=== PATIENT | female | born 1990 | race Caucasian/White ===

== ENCOUNTER 2018-04-24 19:12 | Observation (INO) | payer OTHER ==
--- NOTE | 2018-04-24 19:31 | PDOC ---
Rapid Medical Evaluation Time Seen by Provider: 04/24/18 19:29 Medical Evaluation: Allergies Allergy/AdvReac Type Severity Reaction Status Date / Time No Known Allergies Allergy Verified 07/01/15 22:51 04/24/18 19:29 I performed a brief in-person evaluation of this patient. Chief complaint: Tingling in left arm and leg x 3 days Pertinent physical exam findings: Normal movement and strength. Subjective decreased sensation left arm and leg. No other focal deficits. I have ordered the following: Basic labs Patient will proceed to the ED for further evaluation. Discharge Disposition - Diagnosis Numbness - Referrals - Patient Instructions - Post Discharge Activity
[2018-04-24 19:33] VITALS: BMI 35.0
[2018-04-24 20:12] LABS: ALK PHOS 87 U/L (45-117); ANION GAP 6 MMOL/L (8-16); BILIRUBIN,TOTAL 0.2 mg/dL (0.2-1); BLOOD UREA NITROGEN 11 mg/dL (7-18); CALCIUM 9.2 mg/dL (8.5-10.1); CHLORIDE 106 mmol/L (98-107); CO2 27 mmol/L (21-32); CREATININE 0.9 mg/dL (0.55-1.3); GLUCOSE,RANDOM 90 mg/dL (74-106); MAGNESIUM 2.4 mg/dL (1.8-2.4); SGOT/AST 22 U/L (15-37); SGPT/ALT 52 U/L (13-61); SODIUM 139 mmol/L (136-145); TOT PROT 7.7 g/dl (6.4-8.2)
[2018-04-24 20:26] LABS: BASO % 0.5 % (0-2.0); EOS % 0.7 % (0-4.5); HEMATOCRIT 34.7 % (32.4-45.2); HEMOGLOBIN 11.3 GM/dL (10.7-15.3); LYMPH % 34.4 % (8-40); MCH 24.6 pg (25.7-33.7); MCHC 32.7 g/dl (32.0-36.0); MEAN CELL VOLUME 75.1 fl (80-96); MONO % 8.1 % (3.8-10.2); NEUT % 56.3 % (42.8-82.8); PLATELET COUNT 588 K/MM3 (134-434); RBC 4.62 M/mm3 (3.60-5.2); RDW 20.9 % (11.6-15.6); WHITE BLOOD COUNT 7.9 K/mm3 (4.0-10.0)
[2018-04-24 20:36] LABS: INR 0.94 (0.83-1.09); PROTHROMBIN TIME (PATIENT) 11.1 SEC (9.7-13.0)
--- NOTE | 2018-04-24 20:49 | PDOC ---
History of Present Illness - General Chief Complaint: CVA/TIA Stated Complaint: TINGLING IN LEFT ARM AND KNEE Time Seen by Provider: 04/24/18 19:29 - History of Present Illness Initial Comments: 04/24/18 20:50 The patient is a 27 year old female with a PMH of Thrombocytosis, Anemia who presents to our ED with a 3 day h/o L sided tingling and numbness. Tingling is constant and she sometimes notice that her LUE and LLE are numb. Also c/o L sided cheek numbness without tingling. Denies any changes in gait, vision, speech, bowel/bladder control or consciousness. H/o symptoms three weeks previous at which time patient was evaluated at urgent care at which time she was noted to be anemic and have eleveted platelets (700's). Symptoms persisted for 1 week. Patient was referred to a neurologist without any intervention as she was asymptomatic. The patient denies chest pain, shortness of breath, abdominal pain, nausea/ vomiting, diarrhea/constipation,dysuria/hematuria. NKDA Surgical: none reported Social: denies toxic habits. As per EMR, patient last evaluated in our ED in 2015 for vaginal bleeding. Past History - Past Medical History Allergies/Adverse Reactions: Allergies Allergy/AdvReac Type Severity Reaction Status Date / Time No Known Allergies Allergy Verified 04/25/18 02:57 Home Medications: Ambulatory Orders NK [No Known Home Medication] 07/01/15 Asthma: No Cancer: No Cardiac Disorders: No CVA: No COPD: No CHF: No Diabetes: No HTN: No Seizures: No Thyroid Disease: No - Surgical History Cardiac Surgery: No Cholecystectomy: No GI Surgery: No Lung Surgery: No - Immunization History Immunization Up to Date: Yes - Suicide/Smoking/Psychosocial Hx Smoking History: Never smoked Have you smoked in the past 12 months: No Information on smoking cessation initiated: No Hx Alcohol Use: No Drug/Substance Use Hx: No Substance Use Type: None Hx Substance Use Treatment: No Review of Systems - Review of Systems Constitutional: No: Chills, Fever HEENTM: No: Blurred Vision, Throat Pain Respiratory: No: Cough, Shortness of Breath Cardiac (ROS): No: Chest Pain, Lightheadedness, Palpitations, Syncope ABD/GI: No: Constipated, Diarrhea, Nausea, Vomiting : No: Burning, Dysuria Neurological: Yes: Numbness, Tingling. No: Unsteady Gait, Ataxia, Dizziness *Physical Exam - Vital Signs Last Vital Signs Temp Pulse Resp BP Pulse Ox 98.7 F 69 20 146/76 100 04/24/18 19:31 04/24/18 19:31 04/24/18 19:31 04/24/18 19:31 04/24/18 19:31 - Physical Exam General Appearance: Yes: Nourished, Appropriately Dressed HEENT: positive: Normal Voice, Hearing Decreased Neck: positive: Trachea midline, Supple Respiratory/Chest: positive: Lungs Clear, Normal Breath Sounds Cardiovascular: positive: S1, S2. 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 negative: Facial Droop, Confused, Disoriented Moderate Sedation - Procedure Monitoring Vital Signs: Procedure Monitoring Vital Signs Temperature 98.7 F 04/24/18 19:31 Pulse Rate 69 04/24/18 19:31 Respiratory Rate 20 04/24/18 19:31 Blood Pressure 146/76 04/24/18 19:31 O2 Sat by Pulse Oximetry (%) 100 04/24/18 19:31 ED Treatment Course - LABORATORY CBC & Chemistry Diagram: 04/25/18 06:40 04/25/18 06:40 - ADDITIONAL ORDERS Additional order review: Laboratory Results 04/24/18 04/24/18 04/24/18 19:37 19:37 19:32 PT with INR 11.10 INR 0.94 Sodium 139 Potassium 4.0 Chloride 106 Carbon Dioxide 27 Anion Gap 6 L BUN 11 Creatinine 0.9 Creat Clearance w eGFR > 60 Random Glucose 90 Calcium 9.2 Magnesium 2.4 Total Bilirubin 0.2 AST 22 ALT 52 Alkaline Phosphatase 87 Total Protein 7.7 Albumin 4.0 Serum , Qual Negative 04/24/18 19:37 RBC 4.62 MCV 75.1 L MCHC 32.7 RDW 20.9 H MPV 8.0 Neutrophils % 56.3 Lymphocytes % 34.4 Monocytes % 8.1 Eosinophils % 0.7 Basophils % 0.5 Medical Decision Making - Medical Decision Making 04/24/18 20:48 27 year old female presents with two episodes of L sided numbness and tingling. VS unremarkable. Decreased sensation in LUE/JESSE. No other neurologic deficit noted. Frontal diagnosis: r/o CVA/TIA, electrolyte derangement, migraine disorder, MS or other AI disease. Will obtain Head CT, Headache cocktail. Reassess. Head CT negative for acute ischemia/bleed VSS Patient reassessed @ bedside - head improved, however continues to c/o numbness and tingling. At this time patient requires further neurological evaluation including MRI to r /o MS. Will admit to medicine. Patient counseled on plan of care. Amenable to admission. Case d/w Dr. Christopher Fisher (Resident) will admit to observation. Neuro consult pending. Clinical Impression: ? MS *DC/Admit/Observation/Transfer Diagnosis at time of Disposition: Numbness - Discharge Dispostion Disposition: HOME Condition at time of disposition: Stable - Referrals - Patient Instructions - Post Discharge Activity
[2018-04-24 21:06] LABS: ANISOCYTOSIS 2+
[2018-04-24 21:07] LABS: PLATELET ESTIMATE INCREASED
[2018-04-24] MEDS ORDERED: ACETAMINOPHEN 1000 MG/100 ML VIAL (NON FORMULARY) IVPB ONE (21:15)
[2018-04-24] MEDS ORDERED: METOCLOPRAMIDE HCL INJECTION 10 MG/2 ML VIAL IVPUSH ONE (21:15)
[2018-04-24] MEDS ORDERED: ACETAMINOPHEN INJECTION 100 ML IVPB ONE (21:22)
[2018-04-24] MEDS ORDERED: METOCLOPRAMIDE HCL INJECTION 10 MG/2 ML VIAL ONE (21:22)
--- NOTE | 2018-04-24 21:24 | PDOC ---
Attending Attestation - [facility] HPI: The patient is a 27 year old female, with no significant PMH, who presents to the emergency department today complaining of tingling in the left upper and lower extremity for 3 days. Patient notes she feels tingling from the left shoulder to wrist, and from the left knee to the left ankle. She also notes associated decreased sensation. Patient reports that her gait, vision, and speech have been unaffected by this sensation. She also complains of an intermittent left-sided headache and decreased sensation on the left cheek. Patient reports a similar history 3 weeks ago, but only tingling from the left knee to the left ankle. Patient notes she went to Urgent Care at that time, and all test were normal except her platelets were elevated (in the 700s). She states she followed up with a neurologist, but was asymptomatic so was sent home. Patient notes her last episode resolved after a week. She denies any family history of these symptoms, but does note her mom has HTN and migraines. The patient denies chest pain, shortness of breath, and dizziness. Denies fever, chills, nausea, vomit, diarrhea and constipation. Denies dysuria, frequency, urgency and hematuria. Allergies: NKA Past surgical history: None reported Social history: No reported 04/24/18 21:34 - Physicial Exam PE: GENERAL: Awake, alert, and fully oriented, in no acute distress HEAD: No signs of trauma EYES: PERRLA, EOMI, sclera anicteric, conjunctiva clear ENT: Auricles normal inspection, hearing grossly normal, nares patent, oropharynx clear without exudates. Moist mucosa NECK: Normal ROM, supple, no lymphadenopathy, JVD, or masses LUNGS: Breath sounds equal, clear to auscultation bilaterally. No wheezes, and no crackles HEART: Regular rate and rhythm, normal S1 and S2, no murmurs, rubs or gallops ABDOMEN: Soft, nontender, normoactive bowel sounds. No guarding, no rebound. No masses EXTREMITIES: Normal range of motion, no edema. No clubbing or cyanosis. No cords, erythema, or tenderness NEUROLOGICAL: +Decreased sensation on the left maxillary. +Decreased sensation of the left arm and left leg. No pronator drift, dysmetria, or dysarthria. 5/5 strength of the upper and lower extremities. Cranial nerves II through XII grossly intact. Normal speech, normal gait. SKIN: Warm, Dry, normal turgor, no rashes or lesions noted. 04/24/18 21:34 - Medical Decision Making EXAM: CT head without contrast: IMPRESSION: Normal head. Reported by: Matthew Bruce MD 04/25/2018 00:09 Documentation prepared by SLY Leija, acting as medical imaging tech for Ramon Hendrix MD. 04/25/18 01:37 <Irlanda Vazquez - Last Filed: 04/25/18 01:37> - Resident Resident Name: Meredith Duggan - ED Attending Attestation I have performed the following: I have examined & evaluated the patient, The case was reviewed & discussed with the resident, I agree w/resident's findings & plan, Exceptions are as noted - Medical Decision Making 04/24/18 21:23 A portion of this note was documented by scribe services under my direction. I have reviewed the details of the note, within reason, and agree with the documentation with the following case summary and management plan written by me. Patient treated in the ED. Nursing notes are reviewed and incorporated into the medical decision-making. Vital signs reviewed. Peripheral IV access obtained by the nurse, laboratory studies are drawn and sent, reviewed and interpreted by myself. Vital Signs Temp Pulse Resp BP Pulse Ox 98.7 F 69 20 146/76 100 04/24/18 19:31 04/24/18 19:31 04/24/18 19:31 04/24/18 19:31 04/24/18 19:31 27-year-old female with past medical history other monocytosis, anemia presents with left-sided tingling and numbness since yesterday. The patient reported some her symptoms but only with her left lower extremity by 3 weeks ago that lasted for approximate 1 week. It resolved on its own. However, the patient did follow within neurologist who stated no intervention needed at that time. Yesterday, she noted this decreased sensation that persisted. She reported intermittent right-sided headache as well. Mother has a history of migraines the patient denies any prior history. Patient with persistent tingling in the left side. We'll rule out stroke, the patient has no risk factors. Differential some includes complex migraine, multiple sclerosis. We'll obtain a head CT and labs. We'll trial migraine medications. If the migraine medications resolved the symptoms, and the head CT is negative, I feel comfortable having the patient discharged neuro follow-up. However, patient is persistent left sided numbness, we'll admit the patient for an MRI of the brain. 04/25/18 01:[address] with no acute findings. But still has numbness despite medications. Will admit for MRI and neuro consult. <Ramon Hendrix - Last Filed: 04/25/18 02:05> NIH Stroke Scale - Last Known Well Date/Time & Onset Date Last Known Well: 04/24/18 - Initial Evaluation Level of consciousness: Alert Ask patient the month and their age: Answers both correctly Ask patient to open & close eyes; make fist and let go: Obeys both correctly Best gaze (horizontal eye movement): Normal Visual field testing: No visual field loss Facial paresis (Show teeth/raise eyebrows/close eyes tight): Normal symmetrical movement Motor Function: Left Arm: Normal Motor Function: Right Arm: Normal (extends arm 90 (or 45) degrees for 10 seconds without drift Motor Function: Left Leg: Normal (extends leg 30 degrees for 5 seconds without drift) Motor Function: Right Leg: Normal (extends leg 30 degrees for 5 seconds without drift) Limb Ataxia: No ataxia Sensory(Use pinprick test arms,legs,trunk,face/side to side): Mild to moderate decrease in sensation Best language (Describe picture, name items, read sentences): No Aphasia Dysarthria (read several words): Normal articulation Extinction and Inattention: No abnormality - Total Score NIH Stroke Scale Score: 1 <Ramon Hendrix - Last Filed: 04/25/18 02:05>
--- NOTE | 2018-04-25 02:20 | PN ---
Teaching Attending Note Name of Resident: Clement Mckenzie ATTENDING PHYSICIAN STATEMENT I saw and evaluated the patient. I reviewed the resident's note and discussed the case with the resident. I agree with the resident's findings and plan as documented. SUBJECTIVE: Patient is a 27 year old woman with PMH thrombocytosis and metromenorrhagia who presents to the ER complaining of tingling in the left upper and lower extremity for 3 days. Patient notes she feels tingling from the left shoulder to wrist, and from the left knee to the left ankle. She also notes associated decreased sensation. Patient reports that her gait, vision, and speech have been unaffected by this sensation. She also complains of an intermittent left- sided headache and decreased sensation on the left cheek. Patient reports a similar history 3 weeks ago, but only tingling from the left knee to the left ankle. Patient notes she went to Urgent Care at that time, and all tests were normal except her platelets were elevated (in the 700s). She states she followed up with a neurologist, but was asymptomatic so was sent home. Patient notes her last episode resolved after a week. She denies any family history of these symptoms, but does note her mom has HTN and migraines. LMP is Apr 25, 2018. The patient denies chest pain, shortness of breath, and dizziness. Denies fever, chills, nausea, vomit, diarrhea and constipation. Denies dysuria, frequency, urgency and hematuria. OBJECTIVE: Alert Vital Signs Period Temp Pulse Resp BP Sys/Ryder Pulse Ox Last 24 Hr 98.7 F 69 20 146/76 100 HEENT: No Jaundice, eye redness or discharge, PERRLA, EOMI. Normocephalic, atraumatic. External ears are normal and hearing is grossly intact. No nasal discharge. Neck: Supple, nontender. No palpable adenopathy or thyromegaly. No JVD Chest: Good effort. Clear to auscultation and percussion. Heart: Regular. No S3, rub or murmur Abdomen: Not distended, soft, nontender and no HSM. No rebound or guarding. Normoactive bowel sounds. Ext: Peripheral pulses intact. No leg edema. Skin: Warm and dry. No petechiae, rash or ecchymosis. Neuro: Alert. Oriented x3. CN 2-12 grossly intact. Sensation grossly intact in all four extremities and DTR are symmetric. Home Medications Medication Instructions Recorded NK [No Known Home Medication] 07/01/15 Abnormal Lab Results 04/24/18 04/24/18 19:37 19:37 MCV 75.1 L MCH 24.6 L D RDW 20.9 H Plt Count 588 H D Anion Gap 6 L ASSESSMENT AND PLAN: 1. Rule out Multiple Sclerosis ? - Clinical features highly suggestive of multiple sclerosis. Recent emergence of thrombocytosis in the patient is additional evidence in support of a diagnosis of MS. Studies have observed platelet abnormalities and a possible role of platelet dysfunction in MS. If brain or spinal cord MRI demonstrate any plaques, then will do a lumbar puncture to confirm multiple sclerosis. If brain MRI is negative, then will get C-spine MRI to rule out cervical radiculopathy. Consult Neurology. 2. Obesity - Will provide patient all the necessary assistance, counseling and positive reinforcement to facilitate weight loss. Consult inspector floor. 3. DVT prophylaxis - Lovenox 40 mg SQ q 24 hours. 4. Advance directives - Full code
--- NOTE | 2018-04-25 03:12 | HP ---
CHIEF COMPLAINT: Left arm, Leg numbness PCP: 2 [facility] HISTORY OF PRESENT ILLNESS: Pt is a 27 y/o lady with no significant past medical history who presents to [facility] c/o of impaired sensation in the left upper and lower extremities. The tingling sensation ranges from pt's left shoulder to her wrist and also from her left ankle to her left knee. Pt states that she abruptly began to experience decreased sensation in her left arm and leg about 3 days ago. Prior to this episode, pt states she had experienced a similar episode approximately 3 weeks ago. Pt denies any changes in bowel/bladder function, gait, speech, or changes in vision. Fam Hx--> Mother Migraines, Father healthy Soc Hx--> No smoking or drinking. Denies illicit drug use Surg Hx-Denies any surgical history. ER course was notable for: (1) CT Head--> Negative (2) (3) Recent Travel: PAST MEDICAL HISTORY: Denies PAST SURGICAL HISTORY: Denies Social History: Smoking:denies Alcohol: denies Drugs: denies Family History: Allergies No Known Allergies Allergy (Verified 04/25/18 02:57) HOME MEDICATIONS: denies Home Medications Medication Instructions Recorded NK [No Known Home Medication] 07/01/15 REVIEW OF SYSTEMS CONSTITUTIONAL: Absent: fever, chills, diaphoresis, generalized weakness, malaise, loss of appetite, weight change HEENT: Absent: rhinorrhea, nasal congestion, throat pain, throat swelling, difficulty swallowing, mouth swelling, ear pain, eye pain, visual changes CARDIOVASCULAR: Absent: chest pain, syncope, palpitations, irregular heart rate, lightheadedness , peripheral edema RESPIRATORY: Absent: cough, shortness of breath, dyspnea with exertion, orthopnea, wheezing, stridor, hemoptysis GASTROINTESTINAL: Absent: abdominal pain, abdominal distension, nausea, vomiting, diarrhea, constipation, melena, hematochezia GENITOURINARY: Absent: dysuria, frequency, urgency, hesitancy, hematuria, flank pain, genital pain MUSCULOSKELETAL: Absent: myalgia, arthralgia, joint swelling, back pain, neck pain SKIN: Absent: rash, itching, pallor HEMATOLOGIC/IMMUNOLOGIC: Absent: easy bleeding, easy bruising, lymphadenopathy, frequent infections ENDOCRINE: Absent: unexplained weight gain, unexplained weight loss, heat intolerance, cold intolerance NEUROLOGIC: PRESENT: headache, paresthesias, PSYCHIATRIC: Absent: anxiety, depression, suicidal or homicidal ideation, hallucinations. PHYSICAL EXAMINATION Vital Signs - 24 hr 04/24/18 19:31 Temperature 98.7 F Pulse Rate 69 Respiratory 20 Rate Blood Pressure 146/76 O2 Sat by Pulse 100 Oximetry (%) GENERAL: NAD AAOx3 HEAD: Normal with no signs of trauma. EYES: Able to track finger with eyes FROM. EARS, NOSE, THROAT:MMM HEART: RRR, No MRG S1S2 ABDOMEN: Soft NDNT. MUSCULOSKELETAL: FROM throughout UPPER EXTREMITIES: 2+ pulses, warm, well-perfused. No cyanosis. No clubbing. No peripheral edema. LOWER EXTREMITIES: 2+ pulses, warm, well-perfused. No calf tenderness. No peripheral edema. NEUROLOGICAL: SILT throughout. CN 2-12 intact. Motor strength 5/5 upper/lower extremities. PSYCHIATRIC: Cooperative. Good eye contact. Appropriate mood and affect. SKIN: Warm, dry, normal turgor, no rashes or lesions noted, normal capillary refill. Laboratory Results - last 24 hr 04/24/18 04/24/18 04/24/18 19:32 19:37 19:37 WBC 7.9 RBC 4.62 Hgb 11.3 Hct 34.7 MCV 75.1 L MCH 24.6 L D MCHC 32.7 RDW 20.9 H Plt Count 588 H D MPV 8.0 Absolute Neuts (auto) 4.5 Neutrophils % 56.3 Lymphocytes % 34.4 Monocytes % 8.1 Eosinophils % 0.7 Basophils % 0.5 Nucleated RBC % 0 Platelet Estimate Increased Platelet Comment No clumping noted Anisocytosis 2+ Microcytosis 1+ PT with INR 11.10 INR 0.94 Sodium Potassium Chloride Carbon Dioxide Anion Gap BUN Creatinine Creat Clearance w eGFR Random Glucose Calcium Magnesium Total Bilirubin AST ALT Alkaline Phosphatase Total Protein Albumin Serum , Qual Negative 04/24/18 19:37 WBC RBC Hgb Hct MCV MCH MCHC RDW Plt Count MPV Absolute Neuts (auto) Neutrophils % Lymphocytes % Monocytes % Eosinophils % Basophils % Nucleated RBC % Platelet Estimate Platelet Comment Anisocytosis Microcytosis PT with INR INR Sodium 139 Potassium 4.0 Chloride 106 Carbon Dioxide 27 Anion Gap 6 L BUN 11 Creatinine 0.9 Creat Clearance w eGFR > 60 Random Glucose 90 Calcium 9.2 Magnesium 2.4 Total Bilirubin 0.2 AST 22 ALT 52 Alkaline Phosphatase 87 Total Protein 7.7 Albumin 4.0 Serum , Qual ASSESSMENT/PLAN: Pt is a 27 y/o lady with no significant past medical history who presents to [facility] c/o of impaired sensation in the left upper and lower extremities # Paresthesia 2/2 Multiple Sclerosis? -Young Adult Female presenting with remitting and relapsing signs and symptoms -Brain MRI to look for white matter lesions -Neurology Consult - C-Spine MRI to r/o Cervical Radiculopathy as possible culprit of symptoms mentioned -If Brain MRI Positive---> Spinal tap to search for Oliglonal bands. #FEN No Fluids Monitor electrolytes Regular Diet #Dispo: Obs Visit type - Emergency Visit Emergency Visit: Yes ED Registration Date: 04/25/18 Care time: The patient presented to the Emergency Department on the above date and was hospitalized for further evaluation of their emergent condition. - New Patient This patient is new to me today: Yes Date on this admission: 04/25/18 - Critical Care Critical Care patient: No
[2018-04-25] MEDS: HEPARIN NA (PORCINE) 5,000 UNITS/ML 1ML VIAL SQ SCH ×3 (06:13→21:59)
[2018-04-25 08:07] LABS: HEMATOCRIT 32.3 % (32.4-45.2); HEMOGLOBIN 10.5 GM/dL (10.7-15.3); MCH 24.3 pg (25.7-33.7); MCHC 32.4 g/dl (32.0-36.0); MEAN PLT VOLUME 7.6 fl (7.5-11.1); PLATELET COUNT 518 K/MM3 (134-434); RBC 4.31 M/mm3 (3.60-5.2); RDW 20.7 % (11.6-15.6); WHITE BLOOD COUNT 6.6 K/mm3 (4.0-10.0)
[2018-04-25 08:38] LABS: ANION GAP 7 MMOL/L (8-16); BLOOD UREA NITROGEN 13 mg/dL (7-18); CALCIUM 8.7 mg/dL (8.5-10.1); CHLORIDE 109 mmol/L (98-107); CO2 27 mmol/L (21-32); CREATININE 0.7 mg/dL (0.55-1.3); GLUCOSE,RANDOM 87 mg/dL (74-106); PHOSPHOROUS 4.8 mg/dL (2.5-4.9); POTASSIUM 4.2 mmol/L (3.5-5.1); SODIUM 142 mmol/L (136-145)
[2018-04-25 08:39] LABS: INR 1.01 (0.83-1.09); PROTHROMBIN TIME (PATIENT) 11.9 SEC (9.7-13.0)
[2018-04-25 08:42] LABS: ACTIVATED PTT 34.4 SECONDS (25.2-36.5)
--- NOTE | 2018-04-25 11:01 | CONSULT ---
Consult - text type - Consultation Consultation Note: Neurology CHIEF COMPLAINT: Left arm, Leg numbness PCP: 2 [facility] HISTORY OF PRESENT ILLNESS: Pt is a 27 y/o lady with no significant past medical history who presents to [facility] c/o of impaired sensation in the left upper and lower extremities on day of admission. The tingling sensation ranges from patient's left shoulder to her wrist and also from her left ankle to her left knee. Pt states that she abruptly began to experience decreased sensation in her left arm and leg about 3 days ago, prior to admission. Prior to this episode, pt states she had experienced a similar episode approximately 3 weeks ago. Pt denies any changes in bowel/bladder function, gait, speech, or changes in vision. Denies specific weakness, just tingling sensation that is persistent. CT head without acute changes. MRI brain and C spine ordered, not completed. Otherwise neurologically without other deficits. PAST MEDICAL HISTORY: Denies PAST SURGICAL HISTORY: Denies Social History: Smoking:denies Alcohol: denies Drugs: denies Family History: Mother - migranes Father - no medical history Allergies No Known Allergies Allergy (Verified 04/25/18 02:57) HOME MEDICATIONS: denies Home Medications Medication Instructions Recorded NK [No Known Home Medication] 07/01/15 REVIEW OF SYSTEMS CONSTITUTIONAL: Absent: fever, chills, diaphoresis, generalized weakness, malaise, loss of appetite, weight change HEENT: Absent: rhinorrhea, nasal congestion, throat pain, throat swelling, difficulty swallowing, mouth swelling, ear pain, eye pain, visual changes CARDIOVASCULAR: Absent: chest pain, syncope, palpitations, irregular heart rate, lightheadedness , peripheral edema RESPIRATORY: Absent: cough, shortness of breath, dyspnea with exertion, orthopnea, wheezing, stridor, hemoptysis GASTROINTESTINAL: Absent: abdominal pain, abdominal distension, nausea, vomiting, diarrhea, constipation, melena, hematochezia GENITOURINARY: Absent: dysuria, frequency, urgency, hesitancy, hematuria, flank pain, genital pain MUSCULOSKELETAL: Absent: myalgia, arthralgia, joint swelling, back pain, neck pain SKIN: Absent: rash, itching, pallor HEMATOLOGIC/IMMUNOLOGIC: Absent: easy bleeding, easy bruising, lymphadenopathy, frequent infections ENDOCRINE: Absent: unexplained weight gain, unexplained weight loss, heat intolerance, cold intolerance NEUROLOGIC: PRESENT: headache, paresthesias, PSYCHIATRIC: Absent: anxiety, depression, suicidal or homicidal ideation, hallucinations. PHYSICAL EXAMINATION Vital Signs Temperature 98.2 F 04/25/18 08:18 Pulse Rate 68 04/25/18 08:18 Respiratory Rate 14 04/25/18 08:18 Blood Pressure 123/73 04/25/18 08:18 O2 Sat by Pulse Oximetry (%) 100 04/25/18 08:48 GENERAL: NAD AAOx3 HEAD: Normal with no signs of trauma. EYES: Able to track finger with eyes FROM. EARS, NOSE, THROAT:MMM HEART: RRR, No MRG S1S2 ABDOMEN: Soft NDNT. MUSCULOSKELETAL: FROM throughout UPPER EXTREMITIES: 2+ pulses, warm, well-perfused. No cyanosis. No clubbing. No peripheral edema. LOWER EXTREMITIES: 2+ pulses, warm, well-perfused. No calf tenderness. No peripheral edema. NEUROLOGICAL: SILT throughout. CN 2-12 intact. Motor strength 5/5 upper/lower extremities. PSYCHIATRIC: Cooperative. Good eye contact. Appropriate mood and affect. SKIN: Warm, dry, normal turgor, no rashes or lesions noted, normal capillary refill. CBCD WBC 6.6 K/mm3 (4.0-10.0) 04/25/18 06:40 RBC 4.31 M/mm3 (3.60-5.2) 04/25/18 06:40 Hgb 10.5 GM/dL (10.7-15.3) L 04/25/18 06:40 Hct 32.3 % (32.4-45.2) L 04/25/18 06:40 MCV 75.0 fl (80-96) L 04/25/18 06:40 MCHC 32.4 g/dl (32.0-36.0) 04/25/18 06:40 RDW 20.7 % (11.6-15.6) H 04/25/18 06:40 Plt Count 518 K/MM3 (134-434) H 04/25/18 06:40 MPV 7.6 fl (7.5-11.1) 04/25/18 06:40 CMP Sodium 142 mmol/L (136-145) 04/25/18 06:40 Potassium 4.2 mmol/L (3.5-5.1) 04/25/18 06:40 Chloride 109 mmol/L (98-107) H 04/25/18 06:40 Carbon Dioxide 27 mmol/L (21-32) 04/25/18 06:40 Anion Gap 7 MMOL/L (8-16) L 04/25/18 06:40 BUN 13 mg/dL (7-18) 04/25/18 06:40 Creatinine 0.7 mg/dL (0.55-1.3) 04/25/18 06:40 Creat Clearance w eGFR > 60 (>60) 04/25/18 06:40 Random Glucose 87 mg/dL (74-106) 04/25/18 06:40 Calcium 8.7 mg/dL (8.5-10.1) 04/25/18 06:40 Total Bilirubin 0.2 mg/dL (0.2-1) 04/24/18 19:37 AST 22 U/L (15-37) 04/24/18 19:37 ALT 52 U/L (13-61) 04/24/18 19:37 Alkaline Phosphatase 87 U/L (45-117) 04/24/18 19:37 Total Protein 7.7 g/dl (6.4-8.2) 04/24/18 19:37 Albumin 4.0 g/dl (3.4-5.0) 04/24/18 19:37 Diagnostics: Head CT - completed, results pending ASSESSMENT/PLAN: Pt is a 27 y/o lady with no significant past medical history who presents to [facility] c/o of impaired sensation in the left upper and lower extremities on day of admission. The tingling sensation ranges from patient's left shoulder to her wrist and also from her left ankle to her left knee. Pt states that she abruptly began to experience decreased sensation in her left arm and leg about 3 days ago, prior to admission. Prior to this episode, pt states she had experienced a similar episode approximately 3 weeks ago. Pt denies any changes in bowel/bladder function, gait, speech, or changes in vision. Denies specific weakness, just tingling sensation that is persistent. CT head without acute changes. MRI brain and C spine ordered, not completed. Otherwise neurologically without other deficits. IF imaging negative can consider outpatient follow up.
[2018-04-26] MEDS: HEPARIN NA (PORCINE) 5,000 UNITS/ML 1ML VIAL SQ SCH ×2 (06:16→13:18)
--- NOTE | 2018-04-26 11:13 | PN ---
Progress Note (short form) - Note Progress Note: Neurology CHIEF COMPLAINT: Left arm, Leg numbness PCP: [facility] HISTORY OF PRESENT ILLNESS: Pt is a 27 y/o lady with no significant past medical history who presents to [facility] c/o of impaired sensation in the left upper and lower extremities on day of admission. The tingling sensation ranges from patient's left shoulder to her wrist and also from her left ankle to her left knee. Pt stated that she abruptly began to experience decreased sensation in her left arm and leg about 3 days ago, prior to admission. Prior to this episode, pt stated she had experienced a similar episode approximately 3 weeks ago. Pt denied any changes in bowel/bladder function, gait, speech, or changes in vision. Denied specific weakness, just tingling sensation that is persistent. CT head without acute changes. MRI brain completed, no acute changes. C spine completed, disc herniation between T2-T3 and T3-T4 noted. Otherwise neurologically without other deficits. Recommended therapy, would not require surgical intervention. Recommended outpatient follow up. Active Medications Heparin Sodium (Porcine) (Heparin -) 5,000 unit SQ TID JENN Last Admin: 04/26/18 06:16 Dose: 5,000 unit PHYSICAL EXAMINATION Vital Signs Temperature 97.9 F 04/26/18 06:00 Pulse Rate 63 04/26/18 06:00 Respiratory Rate 20 04/26/18 06:00 Blood Pressure 125/67 04/26/18 06:00 O2 Sat by Pulse Oximetry (%) 100 04/26/18 00:00 GENERAL: NAD AAOx3 HEAD: Normal with no signs of trauma. EYES: Able to track finger with eyes FROM. EARS, NOSE, THROAT:MMM HEART: RRR, No MRG S1S2 ABDOMEN: Soft NDNT. MUSCULOSKELETAL: FROM throughout UPPER EXTREMITIES: 2+ pulses, warm, well-perfused. No cyanosis. No clubbing. No peripheral edema. LOWER EXTREMITIES: 2+ pulses, warm, well-perfused. No calf tenderness. No peripheral edema. NEUROLOGICAL: SILT throughout. CN 2-12 intact. Motor strength 5/5 upper/lower extremities. PSYCHIATRIC: Cooperative. Good eye contact. Appropriate mood and affect. SKIN: Warm, dry, normal turgor, no rashes or lesions noted, normal capillary refill. CBCD WBC 6.6 K/mm3 (4.0-10.0) 04/25/18 06:40 RBC 4.31 M/mm3 (3.60-5.2) 04/25/18 06:40 Hgb 10.5 GM/dL (10.7-15.3) L 04/25/18 06:40 Hct 32.3 % (32.4-45.2) L 04/25/18 06:40 MCV 75.0 fl (80-96) L 04/25/18 06:40 MCHC 32.4 g/dl (32.0-36.0) 04/25/18 06:40 RDW 20.7 % (11.6-15.6) H 04/25/18 06:40 Plt Count 518 K/MM3 (134-434) H 04/25/18 06:40 MPV 7.6 fl (7.5-11.1) 04/25/18 06:40 CMP Sodium 142 mmol/L (136-145) 04/25/18 06:40 Potassium 4.2 mmol/L (3.5-5.1) 04/25/18 06:40 Chloride 109 mmol/L (98-107) H 04/25/18 06:40 Carbon Dioxide 27 mmol/L (21-32) 04/25/18 06:40 Anion Gap 7 MMOL/L (8-16) L 04/25/18 06:40 BUN 13 mg/dL (7-18) 04/25/18 06:40 Creatinine 0.7 mg/dL (0.55-1.3) 04/25/18 06:40 Creat Clearance w eGFR > 60 (>60) 04/25/18 06:40 Random Glucose 87 mg/dL (74-106) 04/25/18 06:40 Calcium 8.7 mg/dL (8.5-10.1) 04/25/18 06:40 Total Bilirubin 0.2 mg/dL (0.2-1) 04/24/18 19:37 AST 22 U/L (15-37) 04/24/18 19:37 ALT 52 U/L (13-61) 04/24/18 19:37 Alkaline Phosphatase 87 U/L (45-117) 04/24/18 19:37 Total Protein 7.7 g/dl (6.4-8.2) 04/24/18 19:37 Albumin 4.0 g/dl (3.4-5.0) 04/24/18 19:37 Diagnostics: Head CT - completed, reviewed Brain MRI - completed Cervical MRI - completed ASSESSMENT/PLAN: Pt is a 27 y/o lady with no significant past medical history who presents to [facility] c/o of impaired sensation in the left upper and lower extremities on day of admission. The tingling sensation ranges from patient's left shoulder to her wrist and also from her left ankle to her left knee. Pt stated that she abruptly began to experience decreased sensation in her left arm and leg about 3 days ago, prior to admission. Prior to this episode, pt stated she had experienced a similar episode approximately 3 weeks ago. Pt denied any changes in bowel/bladder function, gait, speech, or changes in vision. Denied specific weakness, just tingling sensation that is persistent. CT head without acute changes. MRI brain completed, no acute changes. C spine completed, disc herniation between T2-T3 and T3-T4 noted. Otherwise neurologically without other deficits. Recommended therapy, would not require surgical intervention. Recommended outpatient follow up as needed.
--- NOTE | 2018-04-26 12:48 | DS ---
Physical Exam: SUBJECTIVE: Patient seen and examined at bedside. No more numbness or tingling sensation in extremities. OBJECTIVE: Vital Signs Period Temp Pulse Resp BP Sys/Ryder Pulse Ox Last 24 Hr 97.8 F-98.6 F 58-81 18-20 125-144/67-87 99-100 PHYSICAL EXAM GENERAL: The patient is awake, alert, and fully oriented, in no acute distress. LUNGS: Breath sounds equal, clear to auscultation bilaterally, no wheezes, no crackles, no accessory muscle use. HEART: Regular rate and rhythm, S1, S2 without murmur, rub or gallop. ABDOMEN: Soft, nontender, nondistended, normoactive bowel sounds, no guarding, no rebound, no hepatosplenomegaly, no masses. EXTREMITIES: 2+ pulses, warm, well-perfused, no edema. NEUROLOGICAL: Cranial nerves II through XII grossly intact. LABS Laboratory Results - last 24 hr 04/26/18 07:45 TSH 1.49 Free T4 1.19 HOSPITAL COURSE: Date of Admission:04/25/18 27 yo no significant medical history admitted to the hospital for impaired sensations in all extremities. Symptoms of tinglings and numbness in extremities have been intermittent. Neurology was consulted and MRI brain and spine were negative except small herniations in T2-T4 without nerve impingement. Patient is now safe to be discharged home and follow up with neurologist and neurosurgeon as outpatient. Date of Discharge: 04/26/18 Minutes to complete discharge: 30 Discharge Summary Reason For Visit: HEADACHE Condition: Stable - Instructions Diet, Activity, Other Instructions: You were admitted to the hospital for impaired sensations in your upper and lower extremities. Upon evaluation, your brain MRI is normal and cervical spine MRI found small herniations located in your cervical spine, and they are likely responsible for your symptom. You are now stable to be discharged home. With respect to disc herniations, it' s a chronic condition and you will need to follow up with neurosurgery and neurology as outpatient for further management. Refrain from carrying heavy stuff and prolonged sitting or standing. Referrals: Farshad Perales MD [Staff Physician] - Anthony Phan MD [Staff Physician] - Clement Mckenzie RES [Resident] - Disposition: HOME - Home Medications Comprehensive Discharge Medication List: Ambulatory Orders NK [No Known Home Medication] 07/01/15 This patient is new to me today: Yes Date on this admission: 04/26/18 Emergency Visit: No Critical Care patient: No - Discharge Referral Referred to [facility] Med P.C.: No
[2018-04-26 14:18] VITALS: BP 128/78; PULSE 74; TEMP 98.1
--- NOTE | 2018-04-28 07:17 | PN ---
Teaching Attending Note Name of Resident: Alfonzo Hinds ATTENDING PHYSICIAN STATEMENT I saw and evaluated the patient. I reviewed the resident's note and discussed the case with the resident. I agree with the resident's findings and plan as documented. SUBJECTIVE: Patient has no further pain, no numbness or tingling. OBJECTIVE: Vital Signs Temperature 98.1 F 04/26/18 14:17 Pulse Rate 74 04/26/18 14:17 Respiratory Rate 18 04/26/18 13:52 Blood Pressure 128/78 04/26/18 14:17 O2 Sat by Pulse Oximetry (%) 99 04/26/18 09:00 GENERAL: The patient is awake, alert, and fully oriented, in no acute distress. LUNGS: Breath sounds equal, clear to auscultation bilaterally, no wheezes, no crackles, no accessory muscle use. HEART: Regular rate and rhythm, S1, S2 without murmur, rub or gallop. ABDOMEN: Soft, nontender, nondistended, normoactive bowel sounds, no guarding, no rebound, no hepatosplenomegaly, no masses. EXTREMITIES: 2+ pulses, warm, well-perfused, no edema. NEUROLOGICAL: Cranial nerves II through XII grossly intact. no further numbness or tingling. CBCD WBC 6.6 K/mm3 (4.0-10.0) 04/25/18 06:40 RBC 4.31 M/mm3 (3.60-5.2) 04/25/18 06:40 Hgb 10.5 GM/dL (10.7-15.3) L 04/25/18 06:40 Hct 32.3 % (32.4-45.2) L 04/25/18 06:40 MCV 75.0 fl (80-96) L 04/25/18 06:40 MCHC 32.4 g/dl (32.0-36.0) 04/25/18 06:40 RDW 20.7 % (11.6-15.6) H 04/25/18 06:40 Plt Count 518 K/MM3 (134-434) H 04/25/18 06:40 MPV 7.6 fl (7.5-11.1) 04/25/18 06:40 CMP Sodium 142 mmol/L (136-145) 04/25/18 06:40 Potassium 4.2 mmol/L (3.5-5.1) 04/25/18 06:40 Chloride 109 mmol/L (98-107) H 04/25/18 06:40 Carbon Dioxide 27 mmol/L (21-32) 04/25/18 06:40 Anion Gap 7 MMOL/L (8-16) L 04/25/18 06:40 BUN 13 mg/dL (7-18) 04/25/18 06:40 Creatinine 0.7 mg/dL (0.55-1.3) 04/25/18 06:40 Creat Clearance w eGFR > 60 (>60) 04/25/18 06:40 Random Glucose 87 mg/dL (74-106) 04/25/18 06:40 Calcium 8.7 mg/dL (8.5-10.1) 04/25/18 06:40 Total Bilirubin 0.2 mg/dL (0.2-1) 04/24/18 19:37 AST 22 U/L (15-37) 04/24/18 19:37 ALT 52 U/L (13-61) 04/24/18 19:37 Alkaline Phosphatase 87 U/L (45-117) 04/24/18 19:37 Total Protein 7.7 g/dl (6.4-8.2) 04/24/18 19:37 Albumin 4.0 g/dl (3.4-5.0) 04/24/18 19:37 Home Medications Medication Instructions Recorded NK [No Known Home Medication] 07/01/15 ASSESSMENT AND PLAN: Pt is a 27 y/o lady with no significant PMHx who presents to ED. c/o of impaired sensation in the left upper and lower extremities # Numbness and tingling of LUE improved. patient had a simialr episode 3 weeks ago. MRi of the brain negative, C-spine were negative except small herniations in T2-T4 without nerve impingement. neuro consult appreciated. patient will follow up with the neurologist and neurosurgeon # Obesity: discussed with the patient weight loss and the importance of it since has cervical neck obesity as well. lowfat/no carb.diet explained to the patient. discharge patient home with follow up visit to neuro and neuro surgery.
== END 2018-04-26 14:01 | disposition home or self-care (01) ==
LOC: JER 19:12 → JERBED 04-25 01:05 → J6S 04-25 03:51
PROVIDERS: ADMIT Internal Medicine; ATTEND Internal Medicine
PROC: 3E033NZ Introduction of Analgesics, Hypnotics, Sedatives into Peripheral Vein, Percutaneous Approach (ICD-10-PCS; principal; 2018-04-25)
PROC: 3E033GC Introduction of Other Therapeutic Substance into Peripheral Vein, Percutaneous Approach (ICD-10-PCS; 2018-04-25)
PROC: 3E013GC Introduction of Other Therapeutic Substance into Subcutaneous Tissue, Percutaneous Approach (ICD-10-PCS; 2018-04-25)
DX: R20.0 Anesthesia of skin (principal); E66.9 Obesity, unspecified; Z68.35 Body mass index [BMI] 35.0-35.9, adult
CPT/HCPCS: 36415; 70450-TC; 70551-TC; 72141-TC; 80048; 80053; 83735; 84100; 84439; 84443; 84703; 85025; 85027; 85610; 85730; 96372; 96374; 96375; 99285-25; G0378; J0131; J1644

== ENCOUNTER 2018-06-05 19:32 | Emergency (ER) | payer OTHER ==
[2018-06-05 19:45] VITALS: BP 139/89; PULSE 87; TEMP 98; BMI 34.7
--- NOTE | 2018-06-05 20:08 | PDOC ---
History of Present Illness - General Chief Complaint: Headache Stated Complaint: HEADACHE - History of Present Illness Initial Comments: The pt is a 28F w/ a history of anemia who presents for evaluation for a headache since Friday. She reports that on Friday the GASTELUM started as pain behind her R eye was initially coming and going. On Friday, the GASTELUM began similarly, expanded to her L/became frontal and more typical of her HAs in the past which continued into yesterday. Today the GASTELUM is worse, not made better by ibuprofen, and is now associated with facial pressure and R facial tingling. 06/05/18 20:21 Past History - Past Medical History Allergies/Adverse Reactions: Allergies Allergy/AdvReac Type Severity Reaction Status Date / Time No Known Allergies Allergy Verified 04/25/18 02:57 Home Medications: Ambulatory Orders NK [No Known Home Medication] 07/01/15 Asthma: No Cancer: No Cardiac Disorders: No CVA: No COPD: No CHF: No Diabetes: No HTN: No Seizures: No Thyroid Disease: No - Surgical History Cardiac Surgery: No Cholecystectomy: No GI Surgery: No Lung Surgery: No - Immunization History Immunization Up to Date: Yes - Suicide/Smoking/Psychosocial Hx Smoking History: Never smoked Have you smoked in the past 12 months: No Information on smoking cessation initiated: No Hx Alcohol Use: No Drug/Substance Use Hx: No Substance Use Type: None Hx Substance Use Treatment: No Review of Systems - Review of Systems Able to Perform ROS?: Yes Comments:: GENERAL/CONSTITUTIONAL: No fever or chills. No weakness HEAD, EYES, EARS, NOSE AND THROAT: No change in vision. No ear pain or discharge. No sore throat CARDIOVASCULAR: No chest pain or shortness of breath RESPIRATORY: Denies cough, hemoptysis GASTROINTESTINAL: No nausea, vomiting, diarrhea or constipation GENITOURINARY: No dysuria, frequency, or change in urination MUSCULOSKELETAL: No joint or muscle swelling or pain. No neck or back pain SKIN: No rash NEUROLOGIC: No vertigo, loss of consciousness, or change in strength/sensation ENDOCRINE: No increased thirst. No abnormal weight street HEMATOLOGIC/LYMPHATIC: No easy bleeding, or history of blood clots ALLERGIC/IMMUNOLOGIC: No hives or skin allergy 06/05/18 20:08 Is the patient limited Algerian proficient: No *Physical Exam - Vital Signs Last Vital Signs Temp Pulse Resp BP Pulse Ox 98 F 87 20 139/89 99 06/05/18 19:39 06/05/18 19:39 06/05/18 19:39 06/05/18 19:39 06/05/18 19:39 - Physical Exam Comments: GENERAL: Awake, alert, and oriented to person/place/time, in no acute distress HEAD: No signs of trauma, normocephalic, atraumatic EYES: PERRLA, EOMI, sclera anicteric, conjunctiva clear ENT: Hearing grossly normal, nares patent, oropharynx clear without exudates. Moist mucosa LUNGS: No distress, speaks full sentences, clear to auscultation bilaterally HEART: Regular rate and rhythm, normal S1 and S2, no murmurs appreciated, peripheral pulses normal and equal bilaterally ABDOMEN: Soft, nontender, normoactive bowel sounds. No guarding, no rebound EXTREMITIES: Normal inspection, Normal range of motion, no edema. No clubbing or cyanosis NEUROLOGICAL: Cranial nerves II through XII grossly intact. Normal speech, normal gait, no focal sensorimotor deficits SKIN: Warm, Dry 06/05/18 20:08 ED Treatment Course - LABORATORY CBC & Chemistry Diagram: 06/05/18 20:40 06/05/18 20:40 Medical Decision Making - Medical Decision Making The pt is a 28F w/ a history of anemia who presents for evaluation of 4 days of GASTELUM ED Course CMP, CBC Ofirmev, Benadryl, Reglan, and IVF 06/05/18 20:30 Pt currently starting to receive interventions No anemia No leukocytosis Lytes wnl No ANNE LFTs wnl 06/05/18 21:31 Pt feels improved at this time Plan for D/C w/ PCP f/u Discharge instructions and return precautions given Pt in agreement and verbalized understanding Dispo: home 06/05/18 22:42 *DC/Admit/Observation/Transfer Diagnosis at time of Disposition: Headache Qualifiers: Headache type: unspecified Headache chronicity pattern: unspecified pattern Intractability: not intractable Qualified Code(s): R51 - Headache - Discharge Dispostion Disposition: HOME Condition at time of disposition: Improved Decision to Admit order: No - Referrals Referrals: Kirstin Gil NP [Primary Care Provider] - - Patient Instructions Printed Discharge Instructions: DI for Sinus Headache Additional Instructions: You were seen in the Emergency Department for evaluation of headache. You your labs were unremarkable. For pain, you may take Tylenol up to 650mg every 6 hours and Ibuprofen up to 600mg every 6 hours, alternating each one every six hours. Also for the next two days you should use a saline nasal spray for symptomatic relief as directed on the packaging. Follow up with your primary care provider within a week. Return to the Emergency Department if you develop fevers/chills, chest pain, trouble breathing , vision changes, worsening symptoms, or any new/concerning symptoms. - Post Discharge Activity Forms/Work/School Notes: Back to Work
[2018-06-05] MEDS ORDERED: SODIUM CHLORIDE 0.9% 500 ML INFUS.BAG IV ONE (20:28)
[2018-06-05] MEDS ORDERED: METOCLOPRAMIDE HCL INJECTION 10 MG/2 ML VIAL IVPB ONE (20:28)
[2018-06-05] MEDS ORDERED: ACETAMINOPHEN 1000 MG/100 ML VIAL (NON FORMULARY) IVPB ONE (20:28)
[2018-06-05 20:51] LABS: HEMATOCRIT 36.4 % (32.4-45.2); HEMOGLOBIN 11.8 GM/dL (10.7-15.3); MCH 26.8 pg (25.7-33.7); MCHC 32.5 g/dl (32.0-36.0); MEAN CELL VOLUME 82.3 fl (80-96); PLATELET COUNT 404 K/MM3 (134-434); RBC 4.42 M/mm3 (3.60-5.2); RDW 23.2 % (11.6-15.6); WHITE BLOOD COUNT 5.9 K/mm3 (4.0-10.0)
[2018-06-05 21:19] LABS: ALBUMIN 3.6 g/dl (3.4-5.0); ALK PHOS 87 U/L (45-117); ANION GAP 8 MMOL/L (8-16); BILIRUBIN,TOTAL 0.1 mg/dL (0.2-1); BLOOD UREA NITROGEN 10 mg/dL (7-18); CALCIUM 8.7 mg/dL (8.5-10.1); CHLORIDE 108 mmol/L (98-107); CO2 27 mmol/L (21-32); CREATININE 0.7 mg/dL (0.55-1.3); GLUCOSE,RANDOM 88 mg/dL (74-106); POTASSIUM 3.5 mmol/L (3.5-5.1); SGOT/AST 22 U/L (15-37); SGPT/ALT 43 U/L (13-61); SODIUM 142 mmol/L (136-145); TOT PROT 6.7 g/dl (6.4-8.2)
[2018-06-05] MEDS ORDERED: METOCLOPRAMIDE HCL INJECTION 10 MG/2 ML VIAL ONE (21:23)
[2018-06-05] MEDS ORDERED: ACETAMINOPHEN INJECTION 100 ML IVPB ONE (21:23)
--- NOTE | 2018-06-05 21:38 | PDOC ---
Attending Attestation - HPI HPI: 06/06/18 01:44 The patient is a 28 year old female, with a significant past medical history of anemia, who presents to the emergency department with a headache since Friday. She states that on Friday she noticed a pain behind her right eye as well as some chills, body aches and sweating which resolved Friday morning. She reports the increase in pain has been gradually increasing intermittently since onset, but has been constant since yesterday. She states she gets a headache about 1x monthly which resolved after taking Tylenol or Motrin, however, states her headache today is more severe than any of her prior headaches. She reports the headache now is localized to her bilateral cheeks and between her eyebrows. She also reportedly felt body aches and chills on Friday night before bed with associated sweating, but states she woke up feeling well on Friday. The patient denies chest pain, shortness of breath, and dizziness. The patient denies fever, nausea, vomit, diarrhea and constipation. The patient denies dysuria, frequency, urgency and hematuria. Allergies: NKDA - Physicial Exam PE: 06/06/18 01:44 ROS: A complete review of 10 out of 10 review of systems is taken and is negative apart from what is previously mentioned below and in the HPI. Physical Exam Vitals: Triage vital signs reviewed General Appearance: No acute distress, well nourished, well developed Head: Atraumatic. +frontal headache exacerbated with bending forward. Eyes: Pupils equal reactive round, extraocular movement intact Neck: Supple; No nuchal rigidity Chest Wall: Nontender Cardiac: Regular rate and rhythm, no murmurs, no rubs, no gallops Lungs: Clear to auscultation bilateral, good air movement bilaterally Abdomen: Soft, nondistended, normal bowel sounds, nontender to palpation Extremities: Full range of motion to all extremities, no cyanosis, clubbing, or edema Skin: Warm and dry, no rashes or lesions, no rash, no petechiae Neuro: AOX3; Cranial Nerves 2-12 grossly intact, Strength intact to all extremities, Sensation intact to all extremities, gait normal <Azalea Lujan - Last Filed: 06/06/18 01:44> - Resident Resident Name: Brendan Johnson - ED Attending Attestation I have performed the following: I have examined & evaluated the patient, The case was reviewed & discussed with the resident, I agree w/resident's findings & plan, Exceptions are as noted - Medical Decision Making 06/06/18 01:54 Well-appearing no apparent distress history and examination consistent with sinus headache. No red flags on patient's headache history. Not sudden onset or maximal in onset no fever no neck stiffness or rash Status post basic migraine cocktail patient feels much better We'll recommend nasal saline rinses at home patient will return to ED for any severe worsening symptoms or for any concerns. <Dany Vick - Last Filed: 06/06/18 01:54> Attestations - Attestations 06/06/18 01:45 Documentation prepared by Azalea Lujan, acting as medical claims representative for Dany Vick MD <Azalea Lujan - Last Filed: 06/06/18 01:44>
== END 2018-06-05 23:14 | disposition home or self-care (01) ==
LOC: JER 19:32
PROC: 3E033NZ Introduction of Analgesics, Hypnotics, Sedatives into Peripheral Vein, Percutaneous Approach (ICD-10-PCS; principal; 2018-06-05)
PROC: 3E033GC Introduction of Other Therapeutic Substance into Peripheral Vein, Percutaneous Approach (ICD-10-PCS; 2018-06-05)
PROC: 3E033GC Introduction of Other Therapeutic Substance into Peripheral Vein, Percutaneous Approach (ICD-10-PCS; 2018-06-05)
DX: R51 Headache (principal); D64.9 Anemia, unspecified
CPT/HCPCS: 36415; 80053; 85027; 96374; 96375; 99282-25; J0131

== ENCOUNTER 2018-06-09 19:06 | Emergency (ER) | payer OTHER ==
[2018-06-09 19:19] VITALS: BP 153/82; PULSE 74; TEMP 97.4; BMI 36.9
--- NOTE | 2018-06-09 19:21 | PDOC ---
Rapid Medical Evaluation Chief Complaint: Headache Time Seen by Provider: 06/09/18 19:13 Medical Evaluation: Allergies Allergy/AdvReac Type Severity Reaction Status Date / Time No Known Allergies Allergy Verified 06/09/18 19:17 Vital Signs Temp Pulse Resp BP Pulse Ox 97.4 F L 74 18 153/82 100 06/09/18 19:13 06/09/18 19:13 06/09/18 19:13 06/09/18 19:13 06/09/18 19:13 06/09/18 19:19 The patient presents with a chief complaint of: rt sided GASTELUM w/ similar presentation in the past, Pt seen by neuro and had - MRI. Pt recommended to f/u in office but did not, pt took no meds as recommended from ED visit 2 days ago I have performed a brief in-person evaluation of this patient; Pertinent physical exam findings: VSS, perrl, no neurofocal deficits I have ordered the following: none The patient will proceed to the ED for further evaluation Discharge Disposition - Diagnosis Headache - Discharge Dispostion Last Admission D/C Date: 08/29/13 - Referrals - Patient Instructions - Post Discharge Activity
[2018-06-09] MEDS ORDERED: KETOROLAC TROMETHAMINE 60 MG/2 ML VIAL IM ONE (19:40)
[2018-06-09] MEDS ORDERED: KETOROLAC TROMETHAMINE 60 MG/2 ML VIAL ONE (19:42)
--- NOTE | 2018-06-09 19:47 | PDOC ---
History of Present Illness - General Chief Complaint: Headache Stated Complaint: HEADACHE Time Seen by Provider: 06/09/18 19:13 - History of Present Illness Initial Comments: 06/09/18 19:43 28 -year-old female with a past medical history significant for anemia presents for evaluation of headache 5 days. No systemic symptoms Past History - Past Medical History Allergies/Adverse Reactions: Allergies Allergy/AdvReac Type Severity Reaction Status Date / Time No Known Allergies Allergy Verified 06/09/18 19:17 Home Medications: Ambulatory Orders NK [No Known Home Medication] 07/01/15 Asthma: No Cancer: No Cardiac Disorders: No CVA: No COPD: No CHF: No Diabetes: No HTN: No Seizures: No Thyroid Disease: No - Surgical History Cardiac Surgery: No Cholecystectomy: No GI Surgery: No Lung Surgery: No - Immunization History Immunization Up to Date: Yes - Suicide/Smoking/Psychosocial Hx Smoking History: Never smoked Have you smoked in the past 12 months: No Information on smoking cessation initiated: No Hx Alcohol Use: No Drug/Substance Use Hx: No Substance Use Type: None Hx Substance Use Treatment: No Review of Systems - Review of Systems Constitutional: No: Fever HEENTM: No: Recent change in vision ABD/GI: No: Nausea, Vomiting Neurological: Yes: Headache. No: Dizziness Hematologic/Lymphatic: Yes: Anemia *Physical Exam - Vital Signs Last Vital Signs Temp Pulse Resp BP Pulse Ox 97.4 F L 74 18 153/82 100 06/09/18 19:13 06/09/18 19:13 06/09/18 19:13 06/09/18 19:13 06/09/18 19:13 - Physical Exam Comments: 06/09/18 19:45 HEAD: NC/AT EYES: Conjuntiva clear Ears: Canals and TM's normal NOSE: No d/c THROAT: Moist mucous membrances, oral pharanx clear, uvula midline NECK: Supple without adenopathy CARDIAC: S1 S2 LUNGS: CTA Full and Equal breath sounds ABDOMEN: Soft NT ND MS: Full ROM in all joints without edema NEUROLOGIC: No gross sensory or motor deficits, NVID SKIN: Normal color and temperature no lesions or rashes Medical Decision Making - Medical Decision Making 06/09/18 19:45 Patient with a headache. She has been to the ER multiple times has been scanned recently scans were reviewed no acute pathology I will have her follow-up with neurology treat her headache with a shot of Toradol. *DC/Admit/Observation/Transfer Diagnosis at time of Disposition: Headache - Discharge Dispostion Disposition: HOME Condition at time of disposition: Stable Decision to Admit order: No - Referrals Referrals: Kirstin Gil NP [Primary Care Provider] - Luciano Kramer MD [Staff Physician] - - Patient Instructions Printed Discharge Instructions: DI for Headache Additional Instructions: Please follow-up with neurology for further evaluation and treatment options. Return to the emergency room for worsening symptoms. Tylenol Motrin as directed for pain. No Motrin until tomorrow you were given a injection of a long-acting anti-inflammatory which should help her headache. - Post Discharge Activity
== END 2018-06-09 19:49 | disposition home or self-care (01) ==
LOC: JER 19:06
PROC: 3E0233Z Introduction of Anti-inflammatory into Muscle, Percutaneous Approach (ICD-10-PCS; principal; 2018-06-09)
DX: R51 Headache (principal)
CPT/HCPCS: 96372; 99281-25

== ENCOUNTER 2019-05-07 15:53 | Emergency (ER) | payer OTHER ==
[2019-05-07 16:02] VITALS: BP 143/86; PULSE 79; TEMP 98.2; BMI 31.3
--- NOTE | 2019-05-07 16:32 | PDOC ---
History of Present Illness - General Chief Complaint: Foreign Body (FB) Stated Complaint: STUCK IN THROAT Time Seen by Provider: 05/07/19 16:02 History Source: Patient Exam Limitations: No Limitations - History of Present Illness Initial Comments: 05/07/19 16:30 HISTORY OF PRESENT ILLNESS: 28-year-old otherwise healthy woman presents emergency department for evaluation of possible ingestion of sponge. Patient reports she was using a loofah in the shower when she felt an irritation in her throat began coughing. Patient is unsure if she ingested part of her sponge or if it was some soapsuds. Patient reports she coughed forcefully which was followed by some posttussive vomiting and did not notice any foreign body. Patient is able to eat and drink without difficulty but still notices a foreign body sensation. Patient denies chest pain or shortness of breath. No recent travel or sick contacts. PAST MEDICAL HISTORY: Denies past medical history SURGICAL HISTORY: Denies ALLERGIES: No known drug allergies REVIEW OF SYSTEMS General/Constitutional: Denies fever or chills. Denies weakness, weight change. HEENT: Denies change in vision. Denies ear pain or discharge. Denies sore throat. Cardiovascular: Denies chest pain or shortness of breath. Respiratory: Denies cough, wheezing, or hemoptysis. Gastrointestinal: Denies nausea, vomiting, diarrhea or constipation. Denies rectal bleeding. Genitourinary: Denies dysuria, frequency, or change in urination. Musculoskeletal: Denies joint or muscle swelling or pain. Denies neck or back pain. Skin and breasts: Denies rash or easy bruising. Neurologic: Denies headache, vertigo, loss of consciousness, or loss of sensation. Psychiatric: Denies depression or anxiety. Endocrine: Denies increased thirst. Denies abnormal weight change. Hematologic/Lymphatic: Denies anemia, easy bleeding, or history of blood clots. Allergic/Immunologic: Denies hives or skin allergy. Denies latex allergy. PHYSICAL EXAM General Appearance: Well-appearing, appropriately dressed. No apparent distress , no intoxication. HEENT: EOMI, PERRLA, normal ENT inspection, normal voice, TMs normal, pharynx normal. No conjunctival pallor. No photophobia, scleral icterus. Neck: Supple. Trachea midline. No tenderness, rigidity, carotid bruit, stridor , lymphadenopathy, or thyromegaly. Respiratory/Chest: Lungs CTAB. No shortness of breath, chest tenderness, respiratory distress, accessory muscle use. No crackles, rales, rhonchi, stridor , wheezing, dullness Cardiovascular: RRR. S1, S2. No JVD, murmur, bradycardia, tachycardia. Gastrointestinal/Abdominal: Normal bowel sounds. Abdomen soft, non-distended. No tenderness or rebound tenderness. No organomegaly, pulsatile mass, guarding, hernia, hepatomegaly, splenomegaly. Past History - Past Medical History Allergies/Adverse Reactions: Allergies Allergy/AdvReac Type Severity Reaction Status Date / Time No Known Allergies Allergy Verified 05/07/19 15:59 Home Medications: Ambulatory Orders Ferrous Sulfate [Feosol] 325 mg PO BID 05/07/19 Asthma: No Cancer: No Cardiac Disorders: No CVA: No COPD: No CHF: No Diabetes: No HTN: No Seizures: No Thyroid Disease: No - Surgical History Cardiac Surgery: No Cholecystectomy: No GI Surgery: No Lung Surgery: No - Immunization History Immunization Up to Date: Yes - Psycho Social/Smoking Cessation Hx Smoking History: Never smoked Have you smoked in the past 12 months: No Hx Alcohol Use: No Drug/Substance Use Hx: No Substance Use Type: None Hx Substance Use Treatment: No *Physical Exam - Vital Signs Last Vital Signs Temp Pulse Resp BP Pulse Ox 98.2 F 79 18 143/86 100 05/07/19 16:00 05/07/19 16:00 05/07/19 16:00 05/07/19 16:00 05/07/19 16:00 ED Treatment Course - RADIOLOGY Radiology Studies Ordered: Category Date Time Status CHEST PA & LAT [RAD] Stat Radiology 05/07/19 16:28 Ordered Medical Decision Making - Medical Decision Making 05/07/19 16:32 A/P: 28-year-old woman for evaluation of possible ingestion of foreign body Physical exam is unremarkable Patient is requesting chest x-ray Reassess 05/07/19 16:49 Chest x-ray as read by me: Angle sharp. Cardiac silhouette is within normal limits. Lung giraldo clear without infiltrate or consolidation noted. Lateral view shows airway without radiopaque foreign body noted. Discharge home to follow-up with her primary doctor. I discussed the physical exam findings, ancillary test results and final diagnoses with the patient. I answered all of the patient's questions. The patient was satisfied with the care received and felt comfortable with the discharge plan and treatment plan. The patient will call their primary care physician within 24 hours to arrange follow-up and will return to the Emergency Department with any new, persistent or worsening symptoms. Portions of this note have been documented using voice recognition software. As a result, errors may occur in the varitypist process. Effort has been made to correct all grammatical and varitypist error, but some may have been missed which may produce sporadic inaccurate varitypist or nonsensical phrases. Discharge - Discharge Information Problems reviewed: Yes Clinical Impression/Diagnosis: Physically well but worried Condition: Stable Disposition: HOME - Admission No - Follow up/Referral Referrals: Kirstin Gil NP [Primary Care Provider] - - Patient Discharge Instructions Additional Instructions: Your x-ray today shows no visible foreign bodies. Ingestion was likely soapsuds which is unlikely to cause injury. Your emergency department visit is incomplete until you follow-up with your primary doctor. Return to the emergency department for any difficulty breathing, shortness of breath, severe pain or for any other concerns. Thank you very much for choosing us to provide your emergent healthcare needs. - Post Discharge Activity Work/Back to School Note: Back to Work
== END 2019-05-07 16:57 | disposition home or self-care (01) ==
LOC: JERFT 15:53
DX: Z71.1 Person with feared health complaint in whom no diagnosis is made (principal)
CPT/HCPCS: 71046-TC-FY; 99283-25

== ENCOUNTER 2019-12-03 07:07 | Emergency (ER) | payer OTHER ==
[2019-12-03 07:38] VITALS: BP 141/91; PULSE 85; TEMP 98.2; BMI 34.5
--- OUTSIDE RECORDS SUMMARY | 2019-12-03 08:00 | XMS ---
:1990 Author Organization [facility] Care Team Providers Name Role Phone LAURA NOBLE Unavailable Unavailable Reece Blunt Unavailable [phone] ROBERT QUIÑONES Unavailable Unavailable RICK MCBRIDE Unavailable Unavailable Aron Pastrana M Unavailable [phone] Bethel, M Unavailable [phone] Bethel, M Unavailable [phone] MAX HYLTON Unavailable Unavailable MYKE FONTAINE Unavailable Unavailable CLIFFORD, AMY Unavailable Unavailable FIONA RENAE MD Unavailable Unavailable BECCA CUEVAS Unavailable Unavailable VIC NOYOLA Unavailable Unavailable ZAMZAM PAGE Unavailable Unavailable WILMA Castellanos Unavailable Unavailable NIEVES WOODS Unavailable Unavailable Esme, Griselda Unavailable Unavailable Esme, Grisedla Unavailable Unavailable Esme, Griselda Unavailable Unavailable Esme, Griselda Unavailable Unavailable Esme, Griselda Unavailable Unavailable Esme, Griselda Unavailable Unavailable Re-disclosure Warning The records that you are about to access may contain information from federally- assisted alcohol or drug abuse programs. If such information is present, then the following federally mandated warning applies: This information has been disclosed to you from records protected by federal confidentiality rules (42 CFR part 2). The federal rules prohibit you from making any further disclosure of this information unless further disclosure is expressly permitted by the written consent of the person to whom it pertains or as otherwise permitted by 42 CFR part 2. A general authorization for the release of medical or other information is NOT sufficient for this purpose. The Federal rules restrict any use of the information to criminally investigate or prosecute any alcohol or drug abuse patient.The records that you are about to access may contain highly sensitive health information, the redisclosure of which is protected by Article 27-F of the [facility] Public Health law. If you continue you may haveaccess to information: Regarding HIV / AIDS; Provided by facilities licensed or operated by the [facility] Office of Mental Health; or Provided by the [facility] Office for People With Developmental Disabilities. If such information is present, then the following [facility] mandated warning applies: This information has been disclosed to you from confidential records which are protected by state law. State law prohibits you from making any further disclosure of this information without the specific written consent of the person to whom it pertains, or as otherwise permitted by law. Any unauthorized further disclosure in violation of state law may result in a fine or skilled nursing sentence or both. A general authorization for the release of medical or other information is NOT sufficient authorization for further disclosure. Allergies and Adverse Reactions Type Description Substance Reaction Status Data Source(s ) Drug allergy No Known Allergies No Known [facility] Drug allergy No Known Drug No Known Drug [facility] Food allergy No Known Food No Known Food [facility] No Known No Known Allergies No Known eCW3 ( [facility]) No Known No Known Allergies No Known eCW3 ( [facility]) No Known No Known Allergies No Known eCW3 ( [facility]) No Known No Known Allergies No Known eCW3 ( [facility]) No Known No Known Allergies No Known eCW3 ( [facility]) No Known No Known Allergies No Known eCW3 ( [facility]) No Known No Known Allergies No Known eCW3 ( [facility]) No Known No Known Allergies No Known eCW3 ( [facility]) No Known No Known Allergies No Known eCW3 ( [facility] Allergies Allergies [facility]) No Known No Known Allergies No Known eCW3 ( [facility] Allergies [facility]) No Known No Known Allergies No Known eCW3 ( [facility] Allergies Allergies [facility]) No Known No Known Allergies No known eCW3 ( [facility] allergies [facility]) (situation) No Known No Known Allergies No known eCW3 ( [facility]) (situation) Encounters Encounter Providers Location Date Indications Data Source(s ) Outpatient Attender: HOA Sagastume 12/01/2019 [facility] 03:06:00 Medical Lotus r Cullenitter: HOA PM EDT WILMA Mattsonr: HOA Castellanos Attender: [facility] 11/20/2019 [facility]EXTGEN ( [facility] [facility] 12:43:00 [facility] PM EDT - Center) 11/20/2019 12:43:00 PM EDT Outpatient Attender: HOA Sagastume 11/03/2019 [facility] 02:32:00 Medical Lotus Bermanitter: HOA PM EDT WILMA Castellanos Attender: [facility] 11/03/2019 [facility] ( [facility] [place] [facility] 02:32:00 [facility] PM EDT - Center) 11/03/2019 02:32:00 PM EDT Outpatient Attender: HOA Sagastume 09/29/2019 [facility] 01:24:00 Medical Centharman r Cullenitter: HOA PM EDT WILMA Castellanos Attender: [facility] 09/29/2019 [facility] ( [facility] [place] [facility] 01:24:00 [facility] PM EDT - Center) 09/29/2019 01:24:00 PM EDT Attender: [facility] 09/22/2019 NEXT GEN ([facility] 10:04:00 [facility] AM EDT - Center) 09/22/2019 10:04:00 AM EDT A28-Est Therapy, [facility] 01/04/2019 eCW3 ([facility] 12:00:00 [facility] A28 AM EDT - Care) 01/04/2019 12:00:00 AM EDT Outpatient [facility] 12/14/2018 e[facility]3 [facility] 12[facility]00 [facility] A28 AM EDT - Care) 12/14/2018 12:00:00 AM EDT A28-Est Therapy, [facility] 12/07/2018 eCW3 ([facility] 12:00:00 [facility] A28 AM EDT - Care) 12/07/2018 12:00:00 AM EDT A28-Est Therapy, [facility] 11/10/2018 eCW3 ([facility] 12:00:00 [facility] A28 AM EDT - Care) 11/10/2018 12:00:00 AM EDT A28-Est Psych [facility] 11/04/2018 eCW3 ([facility] 12:00:00 [facility] A28 AM EDT - Care) 11/04/2018 12:00:00 AM EDT A28-Est Therapy, [facility] 10/20/2018 eCW3 ([facility] 12:00:00 [facility] A28 AM EDT - Care) 10/20/2018 12:00:00 AM EDT A28-New Therapy, [facility] 10/14/2018 eCW3 ([facility] 12:00:00 [facility] A28 AM EDT - Care) 10/14/2018 12:00:00 AM EDT Est. Patient [facility] 10/13/2018 eCW3 ( [facility] 12:00:00 [facility] Initial Medical A28 AM EDT - Care) Nutrition 10/13/2018 12:00:00 AM EDT Outpatient Attender: PEGGY 10/12/2018 Damaris ALARCONILAAdmitter: 01:07:00 [facility] NIEVES WOODS PM EDT Care Corpor ation Outpatient Attender: MINAL 10/12/2018 Tabitha GranadoAttender: 11:16:00 Critical [facility] hospital PEGGY AM EDT Care Corporati on ANILAAdmitter: MYKE FONTAINE Outpatient [facility] 10/01/2018 eCW3 ([facility] 12:00:00 [facility] A28 AM EDT - Care) 10/01/2018 12:00:00 AM EDT Outpatient [facility] 09/30/2018 eCW3 ([facility] 12:00:00 [facility] A28 AM EDT - Care) 09/30/2018 12:00:00 AM EDT Outpatient Attender: Maty 09/23/2018 [facility] felipe MenonAdmitter: 12:00:00 [facility] Maty Victoria AM EDT Care Corpor ation Outpatient Attender: [id number] 09/17/2018 BECCA Jansen 06:00:00 [facility] román BelleAttender: KAYLEE AM EDT Care Cor poration SHANTEdmitter: [id number] BECCA CUEVAS Outpatient [facility] 08/29/2018 eCW3 ([facility] 12:00:00 [facility] A28 AM EDT - Care) 08/29/2018 12:00:00 AM EDT Outpatient Attender: 07/10/2018 [place] CLIFFORD, 06:00:00 [facility] AMYAdmitter: AM EDT Care Corpora Dav Betancourterrer: VIC NOYOLA Outpatient Attender: AIDE 06/29/2018 [facility] LAURA GRISSOMdmitter: 06:00:00 [facility] LAURA NOBLE AM EDT Care Camille oration Outpatient Attender: OC 06/15/2018 [facility] brian JAIMES MDAttender: 02:54:00 [facility] CONCETTA, PM EDT Care Corporati on MILLAdmitter: FIONA RENAE MD Outpatient Attender: KAYLEE 06/11/2018 Joselo FREYttender: 03:34:00 [facility] [id number] CUEVAS, PM EDT Care Corpo ration BECCA BelleAdmitter: ZAMZAM PAGE Outpatient Attender: MINAL [facility]01/2018 [facility] GranadoAttender: 06:00:00 [facility] ROBERT GleasonAttender: AM EDT Care Cor poration LAURA NOBLE KAdmitter: MYKE FONTAINE Outpatient Attender: [id number] 05/14/2018 [facility] BECCA Nielsen 12:51:00 [facility] román BelleAdmitter: PM EST Care Corporat ion [id number] ANDRADE Outpatient Attender: KAYLEE 05/14/2018 Joselo FREYttender: 06:00:00 [facility] [id number] CEUVAS, AM EST Care Corpo ration BECCA BelleAdmitter: ZAMZAM PAGE Outpatient [facility] 05/05/2018 eCW3 ([facility] Care Clinic 12:00:00 [facility] A28 AM EST - Care) 05/05/2018 12:00:00 AM EST Outpatient Attender: REED, 04/20/2018 Damaris CABRERAAdmitter: 06:00:00 [facility] REED RICK AM EST Care Corpo ration Outpatient [facility] 04/10/2018 eCW3 ([facility] 12:00:00 [facility] A28 AM EST - Care) 04/10/2018 12:00:00 AM EST 11/02/2012 [facility] 12:00:00 Medical Center AM EDT OutpatientOFFICE Attender: [facility] 10/14/2012 [facility]GEN ([facility] [place] [facility] 11:20:00 [facility]ani VISIT, EST AM EDT - Center) 10/14/2012 11:20:00 AM EDT OutpatientOFFICE Attender: [facility] 09/28/2012 [facility]GEN ([facility] [place] [facility] 10:04:00 [facility]i dani VISIT, EST AM EDT - Center) 09/28/2012 10:04:00 AM EDT OutpatientOFFICE Attender: [facility] 08/11/2012 [facility]GEN ([facility] [place] [facility] 11:48:00 [facility]i dani VISIT, EST AM EDT - Center) 08/11/2012 11:48:00 AM EDT OutpatientOFFICE Attender: [facility] 08/07/2012 NEXTGEN ([facility]IENT [place] [facility] 03:30:00 [facility] Medi dani VISIT, NEW PM EDT - Center) 08/07/2012 03:30:00 PM EDT Immunizations Vaccine Date Status Description Data Source(s) New in 2011. IIV4 12/14/2018 01:44:00 completed eC W3 ([facility] EDT Health Care) New in 2011. IIV4 12/14/2018 01:44:00 completed eC W3 ([facility] EDT Health Care) New in 2011. IIV4 12/14/2018 01:44:00 completed eC W3 ([facility] EDT Health Care) HPV, quadrivalent 10/14/2012 12:00:00 completed HPV NEX TGEN ([facility] EDT Medical Center) Source: New Immunization Record HPV, quadrivalent 08/11/2012 12:00:00 AM EDT completed HPV NEXTGEN ([facility]) Source: New Immunization Record Tdap 08/07/2012 12:00:00 AM EDT completed Tdap N EXTGEN ([facility]) Source: New Immunization Record Tdap completed Tdap NEXTGEN ([facility]) Source: New Immunization Record Medications Medication Brand Start Product Dose Route Administrative Pharmacy at Indications Reaction Description Data Name Date Form Instructions Instructions Source(s) Tri-Lo-Spri Tri-Lo .0 active Tri-Lo- Sprin eCW3 ntec -Sprin 2020 {tabl anthony ([facility] 0.18/0.215/ anthony 12:00: et} 0.18/0.215/ 0 [facility] 0.25 MG-25 0.18/0 00 AM .25 MG-25 H ealth MCG .215/0 EDT MCG Care) .25 MG-25 MCG TRI-LO-SPRI TRI-LO .0 active TRI-LO- SPRIN eCW3 NTEC -SPRIN 2020 {tabl ANTHONY ([facility] 0.18/0.215/ ANTHONY 12:00: et} 0.18/0.215/ 0 [facility] 0.25 mg-25 0.18/0 00 AM .25 mg-25 H ealth mcg .215/0 EDT mcg Care) .25 mg-25 mcg TRI-LO-SPRI TRI-LO .0 active TRI-LO- SPRIN eCW3 NTEC -SPRIN 2020 {tabl ANTHONY ([facility] 0.18/0.215/ ANTHONY 12:00: et} 0.18/0.215/ 0 [facility] 0.25 mg-25 0.18/0 00 AM .25 mg-25 H ealth mcg .215/0 EDT mcg Care) .25 mg-25 mcg TRI-LO-SPRI TRI-LO .0 active TRI-LO- SPRIN eCW3 NTEC -SPRIN 2020 {tabl ANTHONY ([facility] 0.18/0.215/ ANTHONY 12:00: et} 0.18/0.215/ 0 [facility] 0.25 mg-25 0.18/0 00 AM .25 mg-25 H ealth mcg .215/0 EDT mcg Care) .25 mg-25 mcg TRI-LO-SPRI TRI-LO .0 active TRI-LO- SPRIN eCW3 NTEC -SPRIN 2020 {tabl ANTHONY ([facility] 0.18/0.215/ ANTHONY 12:00: et} 0.18/0.215/ 0 [facility] 0.25 mg-25 0.18/0 00 AM .25 mg-25 H ealth mcg .215/0 EDT mcg Care) .25 mg-25 mcg TRI-LO-SPRI TRI-LO .0 active TRI-LO- SPRIN eCW3 NTEC -SPRIN 2020 {tabl ANTHONY ([facility] 0.18/0.215/ ANTHONY 12:00: et} 0.18/0.215/ 0 [facility] 0.25 mg-25 0.18/0 00 AM .25 mg-25 H ealth mcg .215/0 EDT mcg Care) .25 mg-25 mcg TRI-LO-SPRI TRI-LO .0 active TRI-LO- SPRIN eCW3 NTEC -SPRIN 2020 {tabl ANTHONY ([facility] 0.18/0.215/ ANTHONY 12:00: et} 0.18/0.215/ 0 [facility] 0.25 mg-25 0.18/0 00 AM .25 mg-25 H ealth mcg .215/0 EDT mcg Care) .25 mg-25 mcg TRI-LO-SPRI TRI-LO .0 active TRI-LO- SPRIN eCW3 NTEC -SPRIN 2020 {tabl ANTHONY ([facility] 0.18/0.215/ ANTHONY 12:00: et} 0.18/0.215/ 0 [facility] 0.25 mg-25 0.18/0 00 AM .25 mg-25 H ealth mcg .215/0 EDT mcg Care) .25 mg-25 mcg TRI-LO-SPRI TRI-LO .0 active TRI-LO- SPRIN eCW3 NTEC -SPRIN 2020 {tabl ANTHONY ([facility] 0.18/0.215/ ANTHONY 12:00: et} 0.18/0.215/ 0 [facility] 0.25 mg-25 0.18/0 00 AM .25 mg-25 H ealth mcg .215/0 EDT mcg Care) .25 mg-25 mcg TRI-LO-SPRI TRI-LO .0 active TRI-LO- SPRIN eCW3 NTEC -SPRIN 2020 {tabl ANTHONY ([facility] 0.18/0.215/ ANTHONY 12:00: et} 0.18/0.215/ 0 [facility] 0.25 mg-25 0.18/0 00 AM .25 mg-25 H ealth mcg .215/0 EDT mcg Care) .25 mg-25 mcg TRI-LO-SPRI TRI-LO .0 active TRI-LO- SPRIN eCW3 NTEC -SPRIN 2020 {tabl ANTHONY ([facility] 0.18/0.215/ ANTHONY 12:00: et} 0.18/0.215/ 0 [facility] 0.25 mg-25 0.18/0 00 AM .25 mg-25 H ealth mcg .215/0 EDT mcg Care) .25 mg-25 mcg Tri-Lo-Spri Tri-Lo .0 active Tri-Lo- Sprin eCW3 ntec -Sprin 2020 {tabl anthony ([facility] 0.18/0.215/ anthony 12:00: et} 0.18/0.215/ 0 [facility] 0.25 MG-25 0.18/0 00 AM .25 MG-25 H ealth MCG .215/0 EDT MCG Care) .25 MG-25 MCG Tri-Lo-Spri Tri-Lo .0 active Tri-Lo- Sprin eCW3 ntec -Sprin 2020 {tabl anthony ([facility] 0.18/0.215/ anthony 12:00: et} 0.18/0.215/ 0 [facility] 0.25 MG-25 0.18/0 00 AM .25 MG-25 H ealth MCG .215/0 EDT MCG Care) .25 MG-25 MCG Tri-Lo-Spri Tri-Lo .0 active Tri-Lo- Sprin eCW3 ntec -Sprin 2020 {tabl anthony ([facility] 0.18/0.215/ anthony 12:00: et} 0.18/0.215/ 0 [facility] 0.25 MG-25 0.18/0 00 AM .25 MG-25 H ealth MCG .215/0 EDT MCG Care) .25 MG-25 MCG Tri-Lo-Spri Tri-Lo .0 active Tri-Lo- Sprin eCW3 ntec -Sprin 2020 {tabl anthony ([facility] 0.18/0.215/ anthony 12:00: et} 0.18/0.215/ 0 [facility] 0.25 MG-25 0.18/0 00 AM .25 MG-25 H ealth MCG .215/0 EDT MCG Care) .25 MG-25 MCG Tri-Lo-Spri Tri-Lo .0 active Tri-Lo- Sprin eCW3 ntec -Sprin 2020 {tabl anthony ([facility] 0.18/0.215/ anthony 12:00: et} 0.18/0.215/ 0 [facility] 0.25 MG-25 0.18/0 00 AM .25 MG-25 H ealth MCG .215/0 EDT MCG Care) .25 MG-25 MCG Tri-Lo-Spri Tri-Lo .0 active Tri-Lo- Sprin eCW3 ntec -Sprin 2020 {tabl anthony ([facility] 0.18/0.215/ anthony 12:00: et} 0.18/0.215/ 0 [facility] 0.25 MG-25 0.18/0 00 AM .25 MG-25 H ealth MCG .215/0 EDT MCG Care) .25 MG-25 MCG Tri-Lo-Spri Tri-Lo .0 active Tri-Lo- Sprin eCW3 ntec -Sprin 2020 {tabl anthony ([facility] 0.18/0.215/ anthony 12:00: et} 0.18/0.215/ 0 [facility] 0.25 MG-25 0.18/0 00 AM .25 MG-25 H ealth MCG .215/0 EDT MCG Care) .25 MG-25 MCG Tri-Lo-Spri Tri-Lo .0 active Tri-Lo- Sprin eCW3 ntec -Sprin 2020 {tabl anthony ([facility] 0.18/0.215/ anthony 12:00: et} 0.18/0.215/ 0 [facility] 0.25 MG-25 0.18/0 00 AM .25 MG-25 H ealth MCG .215/0 EDT MCG Care) .25 MG-25 MCG Tri-Lo-Spri Tri-Lo .0 active Tri-Lo- Sprin eCW3 ntec -Sprin 2020 {tabl anthony ([facility] 0.18/0.215/ anthony 12:00: et} 0.18/0.215/ 0 [facility] 0.25 MG-25 0.18/0 00 AM .25 MG-25 H ealth MCG .215/0 EDT MCG Care) .25 MG-25 MCG Tri-Lo-Spri Tri-Lo .0 active Tri-Lo- Sprin eCW3 ntec -Sprin 2019 {tabl anthony ([facility] 0.18/0.215/ anthony 12:00: et} 0.18/0.215/ 0 [facility] 0.25 MG-25 0.18/0 00 AM .25 MG-25 H ealth MCG .215/0 EDT MCG Care) .25 MG-25 MCG Tri-Lo-Spri Tri-Lo .0 active Tri-Lo- Sprin eCW3 ntec -Sprin 2019 {tabl anthony ([facility] 0.18/0.215/ anthony 12:00: et} 0.18/0.215/ 0 [facility] 0.25 MG-25 0.18/0 00 AM .25 MG-25 H ealth MCG .215/0 EDT MCG Care) .25 MG-25 MCG Omeprazole Omepra .0 suspend Omepraz ole eCW3 20 MG zole 2018 {caps ed 20 MG ([facility] Delayed 20 MG 12:00: ule} [facility] 00 AM Health Oral EDT Care) Capsule Omeprazole Omepra .0 suspend Omepraz ole eCW3 20 MG zole 2018 {caps ed 20 MG ([facility] Delayed 20 MG 12:00: ule} [facility] 00 AM Health Oral EDT Care) Capsule Omeprazole Omepra .0 suspend Omepraz ole eCW3 20 MG zole 2018 {caps ed 20 MG ([facility] Delayed 20 MG 12:00: ule} [facility] 00 AM Health Oral EDT Care) Capsule Omeprazole Omepra .0 suspend Omepraz ole eCW3 20 MG zole 2018 {caps ed 20 MG ([facility] Delayed 20 MG 12:00: ule} [facility] 00 AM Health Oral EDT Care) Capsule Omeprazole Omepra .0 suspend Omepraz ole eCW3 20 MG zole 2018 {caps ed 20 MG ([facility] Delayed 20 MG 12:00: ule} [facility] 00 AM Health Oral EDT Care) Capsule Omeprazole Omepra .0 suspend Omepraz ole eCW3 20 MG zole 2018 {caps ed 20 MG ([facility] Delayed 20 MG 12:00: ule} [facility] 00 AM Health Oral EDT Care) Capsule Omeprazole Omepra .0 suspend Omepraz ole eCW3 20 MG zole 2018 {caps ed 20 MG ([facility] Delayed 20 MG 12:00: ule} [facility] 00 AM Health Oral EDT Care) Capsule Omeprazole Omepra .0 suspend Omepraz ole eCW3 20 MG zole 2018 {caps ed 20 MG ([facility] Delayed 20 MG 12:00: ule} [facility] 00 AM Health Oral EDT Care) Capsule Omeprazole Omepra .0 suspend Omepraz ole eCW3 20 MG zole 2018 {caps ed 20 MG ([facility] Delayed 20 MG 12:00: ule} [facility] 00 AM Health Oral EDT Care) Capsule Omeprazole Omepra .0 suspend Omepraz ole eCW3 20 MG zole 2018 {caps ed 20 MG ([facility] Delayed 20 MG 12:00: ule} [facility] 00 AM Health Oral EDT Care) Capsule Omeprazole Omepra .0 suspend Omepraz ole eCW3 20 MG zole 2018 {caps ed 20 MG ([facility] Delayed 20 MG 12:00: ule} [facility] 00 AM Health Oral EDT Care) Capsule ibuprofen IBUPRO ORAL active take 1 NE XTGEN 600 mg FEN 2012 {tabl tablet ([facility] tablet 12:00: et} (600MG) by Sha phs 00 AM oral route 2 Medica l EDT times every Center) day with food Folic Acid folic 1.00 ORAL active take 1 NE XTGEN 0.4 MG Oral acid 2012 {tabl tablet ([facility]erry t Tablet 400 12:00: et} (0.4MG) by Sha topete folic acid mcg 00 AM oral route Me dical 400 mcg Tab Tab EDT every day Ketan ter) No Known complet eCW3 Medications ed ([facility]) No Known complet eCW3 Medications ed ([facility]) Insurance Providers Payer name Policy type Policy ID Covered Covered libertarian's Policy P willi / Coverage libertarian ID relationship to Ta Inf ormation type ta O [id number] MEDICAID [id number] SP [id number] Problems, Conditions, and Diagnoses Code Display Name Description Problem Type Effective Data Sour ce(s) Dates F41.1 Generalized anxiety Generalized Problem 12/07/2018 eCW3 ([place] disorder anxiety disorder 12:00:00 AM [facility] EDT Care) F32.1 Current moderate Current moderate Problem 10/21/2018 eC W3 ([place] episode of major episode of major 12:00:[address] [facility] depressive disorder depressive EDT Care) without prior disorder without episode prior episode F41.9 Anxiety Anxiety Problem 10/14/2018 eCW3 ([facility] 12:00:00 AM [facility] EDT Care) E66.9 Obesity (BMI Obesity (BMI Problem 08/29/2018 eCW3 ([facility] 30-39.9) 30-39.9) 12:00:00 AM [facility] EDT Care) R20.2 Paresthesia of skin Paresthesia of Problem 03/27/2018 e CW3 ([place] skin 12:00:00 AM [facility] EST Care) R20.2 Paresthesia of skin Paresthesia of Problem 03/27/2018 e CW3 ([place] skin 12:00:00 AM [facility] EST Care) N92.0 Excessive and Excessive and Problem 08/01/2017 eCW3 ([facility] frequent frequent 12:00:00 AM [facility] menstruation menstruation with EDT Care) regular cycle N92.0 Excessive and Excessive and Problem 08/01/2017 eCW3 ([facility] frequent frequent 12:00:00 AM [facility] menstruation menstruation with EDT Care) regular cycle N93.9 Abnormal uterine Abnormal uterine Problem 05/30/2017 eC W3 ([facility] bleeding bleeding 12:00:00 AM [facility]) N93.9 Abnormal uterine Abnormal uterine Problem 05/30/2017 eC W3 ([facility] bleeding bleeding 12:00:00 AM [facility]) [id number] Obesity Obesity Problem 08/07/2012 NEXTGEN ([facility] 12:00:00 AM [facility]) V22.2 Patient currently PREG STATE, Problem eCW3 ( [facility] INITIAL VISIT [facility]) K76.9 Liver disease, LIVER DISEASE, Diagnosis 12/01/2019 [facility] unspecified UNSPECIFIED 03:06:00 PM Medical [facility] EDT K80.20 Calculus of CALCULUS OF Diagnosis 11/03/2019 [facility] gallbladder without GALLBLADDER W/O 02:32:00 PM Medical Center cholecystitis CHOLECYSTITIS W/O EDT without obstruction OBSTRUCTION R10.11 Right upper RIGHT UPPER Diagnosis 09/29/2019 [facility] quadrant pain QUADRANT PAIN 01:24:00 PM [facility] EDT R90.89 Other abnormal OTH ABNORMAL Diagnosis 10/12/2018 [facility] findings on FINDINGS ON 11:16:00 AM [facility] diagnostic imaging DIAGNOSTIC IMAGING EDT Care of central nervous OF CNSL Corpor ation system E61.1 Iron deficiency IRON DEFICIENCY Diagnosis 10/12/2018 [place] 11:16:00 AM [facility] EDT Care Corporation R51 Headache HEADACHE Diagnosis 10/12/2018 [place] 11:16:00 AM [facility] EDT [facility] [employer] R20.2 Paresthesia of skin PARESTHESIA OF Diagnosis 10/12/2018 Jazmine estlaura SKIN 11:16:00 AM [facility] EDT [facility] [employer] D50.9 Iron deficiency IRON DEFICIENCY Diagnosis 09/17/2018 [place] anemia, unspecified ANEMIA, 06:00:00 AM [facility] UNSPECIFIED EDT [employer] D47.3 Essential ESSENTIAL Diagnosis 09/17/2018 [place] (hemorrhagic) (HEMORRHAGIC) 06:00:00 AM [facility] thrombocythemia THROMBOCYTHEMIA EDT [facility] [employer] G44.52 New daily NEW DAILY Diagnosis 07/10/2018 [place] persistent headache PERSISTENT 06:00:00 AM [facility] ([facility]) HEADACHE ([facility]) EDT [facility] M51.34 Other OTHER Diagnosis 06/01/2018 [place] intervertebral disc INTERVERTEBRAL 06:00:00 AM [facility] degeneration, DISC DEGENERATION, EDT Car e thoracic region THORACIC REGION Camille oration R20.0 Anesthesia of skin ANESTHESIA OF SKIN Diagnosis 9 [place] 06:00:00 AM [facility] [employer] [facility] [employer] M79.662 Pain in left lower PAIN IN LEFT LOWER Diagnosis 9 [place] leg LEG 06:00:00 AM [facility] [employer] Diagnosis [facility] Diagnosis [facility] Surgeries/Procedures Procedure Description Date Indications Data Source(s) OFFICE/OUTPATIENT 10/14/2012 [facility]GEN (S trevon Leslie VISIT, EST 12:00:00 AM EDT - Medical Ce nter) 10/14/2012 12:00:00 AM EDT OFFICE/OUTPATIENT 09/28/2012 [facility]EXTGEN ([facility] VISIT, EST 12:00:00 AM EDT - Medical Ce nter) 09/28/2012 12:00:00 AM EDT OFFICE/OUTPATIENT 08/11/2012 [facility]GEN ([facility] VISIT, EST 12:00:00 AM EDT - Medical Ce nter) 08/11/2012 12:00:00 AM EDT OFFICE/OUTPATIENT 08/07/2012 [facility]EXTGEN ([facility] trevon Leslie VISIT, NEW 12:00:00 AM EDT - Medical Ce nter) 08/07/2012 12:00:00 AM EDT Results ID Date Data Source Liver 09/29/2019 02:52:00 PM EDT [facility] [id number] Name Value Range Interpretation Description Data Sup porting Code Source(s) Document(s ) Aspartate 14-36 Above high <content [facility] aminotransferase normal styleCode="Bold"> Gerard hs [Enzymatic Aspartate Medical activity/volume] Aminotransferase Center in Serum or Plasma (AST) </content>58 IU/L H<content styleCode="Italic s"> (14-36 IU/L)</content> Alkaline 38-126 <content Saint phosphatase styleCode="Bold"> Leslie [Enzymatic Alkaline Medical activity/volume] Phosphatase (ALP) Cente r in Serum or Plasma </content>69 IU/L<content styleCode="Italic s"> (38-126 IU/L)</content> Alanine 7-30 Above high <content Saint aminotransferase normal styleCode="Bold"> Gerard hs [Enzymatic Alanine Medical activity/volume] Aminotransferase Center in Serum or Plasma (ALT) </content>130 IU/L H<content styleCode="Italic s"> (7-30 IU/L)</content> Bilirubin.total 0.2-1.3 <content [facility] [Mass/volume] in styleCode="Bold"> Gerard hs Serum or Plasma Bilirubin Total Medical </content>0.2 Center MG/DL<content styleCode="Italic s"> (0.2-1.3 MG/DL)</content> UNK 0.0-0.3 <content Saint styleCode="Bold"> Leslie Bilirubin, Direct Medical </content>< 0.2 Center MG/DL<content styleCode="Italic s"> (0.0-0.3 MG/DL)</content> Albumin 3.5-5.0 <content [facility] [Mass/volume] in styleCode="Bold"> Gerard hs Serum or Plasma Albumin Medical </content>4.3 Center G/DL<content styleCode="Italic s"> (3.5-5.0 G/DL)</content> ID Date Data Source [id number] 09/29/2019 02:52:00 PM EDT [facility] Center Name Value Range Interpretation Description Data Sup porting Code Source(s) Document(s ) Aspartate 14-36 Above high <content Saint aminotransferase normal styleCode="Bold"> Gerard hs [Enzymatic Aspartate Medical activity/volume] Aminotransferase Center in Serum or Plasma (AST) </content>58 IU/L H<content styleCode="Italic s"> (14-36 IU/L)</content> Alanine 7-30 Above high <content Saint aminotransferase normal styleCode="Bold"> Gerard hs [Enzymatic Alanine Medical activity/volume] Aminotransferase Center in Serum or Plasma (ALT) </content>130 IU/L H<content styleCode="Italic s"> (7-30 IU/L)</content> Alkaline 38-126 <content [facility] phosphatase styleCode="Bold"> Leslie [Enzymatic Alkaline Medical activity/volume] Phosphatase (ALP) Cente r in Serum or Plasma </content>69 IU/L<content styleCode="Italic s"> (38-126 IU/L)</content> Albumin 3.5-5.0 <content [facility] [Mass/volume] in styleCode="Bold"> Gerard hs Serum or Plasma Albumin Medical </content>4.3 Center G/DL<content styleCode="Italic s"> (3.5-5.0 G/DL)</content> Bilirubin.total 0.2-1.3 <content [facility] [Mass/volume] in styleCode="Bold"> Gerard hs Serum or Plasma Bilirubin Total Medical </content>0.2 Center MG/DL<content styleCode="Italic s"> (0.2-1.3 MG/DL)</content> Procedure Social History Code Duration Value Status Description Data Source(s ) Smoking 11/24/2019 Never Smoker completed Never Smoker eCW3 ([facility] 12:00:00 AM [facility]) Smoking 11/01/2019 Never Smoker completed Never Smoker eCW3 ([facility] 12:00:00 AM [facility]) Smoking 11/01/2019 Never Smoker completed Never Smoker eCW3 ([facility] 12:00:00 AM [facility]) Smoking 09/17/2019 Never Smoker completed Never Smoker eCW3 ([facility] 12:00:00 AM [facility]) Smoking 09/17/2019 Never Smoker completed Never Smoker eCW3 ([facility] 12:00:00 AM [facility]) Smoking 09/17/2019 Never Smoker completed Never Smoker eCW3 ([facility] 12:00:00 AM [facility]) Smoking 09/17/2019 Never Smoker completed Never Smoker eCW3 ([facility] 12:00:00 AM [facility]) Smoking 07/29/2019 Never Smoker completed Never Smoker eCW3 ([facility] 12:00:00 AM [facility]) Smoking 07/29/2019 Never Smoker completed Never Smoker eCW3 ([facility] 12:00:00 AM [facility]) Smoking 07/29/2019 Never Smoker completed Never Smoker eCW3 ([facility] 12:00:00 AM [facility]) Smoking 07/29/2019 Never Smoker completed Never Smoker eCW3 ([facility] 12:00:00 AM [facility]) Smoking 05/06/2018 Never Smoker completed Never Smoker eCW3 ([facility] 12:00:00 AM [facility]) Smoking 05/06/2018 Never Smoker completed Never Smoker eCW3 ([facility] 12:00:00 AM [facility]) Never Smoker completed Never Smoker eCW3 ([facility]) Never Smoker completed Never Smoker eCW3 ([facility]) Never Smoker completed Never Smoker eCW3 ([facility] on [facility]) Smoking Unknown if ever completed Unknown if ever Terry t Leslie smoked [facility] Never Smoker completed Never Smoker eCW3 ([facility] on [facility]) Never Smoker completed Never Smoker eCW3 ([facility] on [facility]) Never Smoker completed Never Smoker eCW3 ([facility] on [facility]) Never Smoker completed Never Smoker eCW3 ([facility] on [facility]) Never Smoker completed Never Smoker eCW3 ([facility] on [facility]) Never Smoker completed Never Smoker eCW3 ([facility] on [facility]) Never Smoker completed Never Smoker eCW3 ([facility] on [facility]) Never Smoker completed Never Smoker eCW3 ([facility] on [facility]) Never Smoker completed Never Smoker eCW3 ([facility]) Never Smoker completed Never Smoker eCW3 ([facility] on [facility]) Vital Signs ID Date Data Source UNK Name Value Range Interpretation Code Description Data Source(s) Diastolic blood 85 mm[Hg] 85 mm[Hg] eCW3 ([facility]) Systolic blood 137 mm[Hg] 137 mm[Hg] eCW3 ([facility]) Body temperature 97.9 [degF] 97.9 [degF] eCW3 ( [facility]) Heart rate 20 /min 20 /min eCW3 ([facility]) Body mass index 37.81 kg/m2 37.81 kg/m2 eCW3 ([facility] (BMI) [Ratio] [facility]) Body weight 229 [lb_av] 229 [lb_av] eCW3 ([facility]) Body height 65.25 [in_i] 65.25 [in_i] eCW3 ([facility]) Body mass index 36.82 kg/m2 36.82 kg/m2 eCW3 ([facility] (BMI) [Ratio] [facility]) Body weight 223 [lb_av] 223 [lb_av] eCW3 ([facility]) Body height 65.25 [in_i] 65.25 [in_i] eCW3 ([facility]) Diastolic blood 87 mm[Hg] 87 mm[Hg] eCW3 ([facility]) Systolic blood 126 mm[Hg] 126 mm[Hg] eCW3 ([facility]) Body temperature 98.5 [degF] 98.5 [degF] eCW3 ( [facility]) Heart rate 20 /min 20 /min eCW3 ([facility]) Body mass index 36.82 kg/m2 36.82 kg/m2 eCW3 ([facility] (BMI) [Ratio] [facility]) Body weight 223 [lb_av] 223 [lb_av] eCW3 ([facility]) Body height 65.25 [in_i] 65.25 [in_i] eCW3 ([facility]) Diastolic blood 82 mm[Hg] 82 mm[Hg] eCW3 ([facility]) Systolic blood 124 mm[Hg] 124 mm[Hg] eCW3 ([facility]) Body temperature 98.5 [degF] 98.5 [degF] eCW3 ( [facility]) Heart rate 20 /min 20 /min eCW3 ([facility]) Body mass index 37.48 kg/m2 37.48 kg/m2 eCW3 ([facility] (BMI) [Ratio] [facility]) Body weight 227 [lb_av] 227 [lb_av] eCW3 ([facility]) Body height 65.25 [in_i] 65.25 [in_i] eCW3 ([facility]) Diastolic blood 86 mm[Hg] 86 mm[Hg] eCW3 ([facility]) Systolic blood 139 mm[Hg] 139 mm[Hg] eCW3 ([facility]) Body temperature 98.3 [degF] 98.3 [degF] eCW3 ( [facility]) Heart rate 20 /min 20 /min eCW3 ([facility]) Body mass index 37.65 kg/m2 37.65 kg/m2 eCW3 ([facility] (BMI) [Ratio] [facility]) Body weight 228 [lb_av] 228 [lb_av] eCW3 ([facility]) Body height 65.25 [in_i] 65.25 [in_i] eCW3 ([facility]) Body height 65.25 [in_i] 65.25 [in_i] eCW3 ([facility]) Body weight 223 [lb_av] 223 [lb_av] eCW3 ([facility]) Body mass index 36.82 kg/m2 36.82 kg/m2 eCW3 ([facility] (BMI) [Ratio] [facility]) Heart rate 20 /min 20 /min eCW3 ([facility]) Body temperature 98.0 [degF] 98.0 [degF] eCW3 ( [facility]) Systolic blood 139 mm[Hg] 139 mm[Hg] eCW3 ([facility]) Diastolic blood 92 mm[Hg] 92 mm[Hg] eCW3 ([facility]) Body height 65.25 [in_i] 65.25 [in_i] eCW3 ([facility]) Body weight 224.2 224.2 [lb_av] eCW3 ([facility] on [lb_av] [facility]) Body mass index 37.02 kg/m2 37.02 kg/m2 eCW3 ([facility] (BMI) [Ratio] [facility]) Heart rate 20 /min 20 /min eCW3 ([facility]) Body temperature 98.5 [degF] 98.5 [degF] eCW3 ( [facility]) Systolic blood 129 mm[Hg] 129 mm[Hg] eCW3 ([facility] on [facility]) Diastolic blood 87 mm[Hg] 87 mm[Hg] eCW3 ([facility] son [facility]) Patient Treatment Plan of Care Planned Activity Planned Date Details Description Data Source (s) [id number] 11/24/2019 12:00:00 eCW3 ([facility] 0.18/0.215/0.25 MG-25 AM [facility]) MCG [id number] 08/18/2019 12:00:00 eCW3 ([facility] 0.18/0.215/0.25 mg-25 AM [facility]) mcg [id number] 08/18/2019 12:00:00 eCW3 ([facility] 0.18/0.215/0.25 mg-25 AM [facility]) mcg [id number] 08/18/2019 12:00:00 eCW3 ([facility] 0.18/0.215/0.25 mg-25 AM [facility]) mcg ibuprofen 600 mg tablet 09/28/2012 12:00:00 NEXTGEN ([facility]) Folic Acid 0.4 MG Oral 08/07/2012 [facility]
[2019-12-03 08:38] LABS: EPI CELLS 8 /uL (0-25.1); HYALINE CASTS 4 /uL (0-3.1); PH,URINE 8.5 (5.0-8.0); URINE APPEARANCE TURBID; URINE BACTERIA 310 /uL (0-1359); URINE BILIRUBIN NEGATIVE (NEGATIVE); URINE COLOR ORANGE; URINE GLUCOSE (UA) NEGATIVE (NEGATIVE); URINE KETONE NEGATIVE (NEGATIVE); URINE LEUK ESTERASE 3+ (NEGATIVE); URINE NITRITE NEGATIVE (NEGATIVE); URINE PROTEIN 2+ (NEGATIVE); URINE RBC 4179 /uL (0-23.9); URINE UROBILINOGEN 0.2 mg/dL (0.2-1.0); URINE WBC 5764 /uL (0-25.8)
--- NOTE | 2019-12-03 08:54 | PDOC ---
History of Present Illness - General Chief Complaint: Hematuria Stated Complaint: BLOOD IN URINE Time Seen by Provider: 12/03/19 07:47 History Source: Patient - History of Present Illness Initial Comments: 12/03/19 08:52 29F w/no PMH p/w 2 days of dysuria. She reports that symptoms began two days ago and improved mildly with hydration, but returned yesterday with a small amount of visible blood in the urine. She reports x2 prior UTIs this year. No N/V/D/abdominal pain Past History - Medical History Allergies/Adverse Reactions: Allergies Allergy/AdvReac Type Severity Reaction Status Date / Time No Known Allergies Allergy Verified 11/25/19 04:31 Home Medications: Ambulatory Orders Nitrofurantoin Monohyd/M-Cryst [Macrobid -] 100 mg PO BID #14 capsule 12/03/19 Norgestimate-Ethinyl Estradiol [Hrg-Pp-Cldfgxqe Tablet] 1 each PO 12/03/19 Asthma: No Cancer: No Cardiac Disorders: No CVA: No COPD: No CHF: No Diabetes: No HTN: No Seizures: No Thyroid Disease: No - Surgical History Cardiac Surgery: No Cholecystectomy: No GI Surgery: No Lung Surgery: No - Reproductive History Is Patient Now?: No - Immunization History Immunization Up to Date: Yes - Psycho-Social/Smoking History Smoking History: Never smoked Have you smoked in the past 12 months: No Information on smoking cessation initiated: No - Substance Abuse Hx (Audit-C & DAST Scrn) How often the patient has a drink containing alcohol: Never Score: In Men: 4 or > Positive; In Women: 3 or > Positive: 0 Screen Result (Pos requires Nsg. Audit-10AR): Negative In the last yr the pt used illegal drug/Rx for NonMed reason: No Score: Yes response is considered Positive: 0 Screen Result (Positive result requires Nsg. DAST-10): Negative *Physical Exam - Vital Signs Last Vital Signs Temp Pulse Resp BP Pulse Ox 98.2 F 85 16 141/91 99 12/03/19 07:30 12/03/19 07:30 12/03/19 07:30 12/03/19 07:30 12/03/19 07:30 ED Treatment Course - ADDITIONAL ORDERS Additional order review: Laboratory Results 12/03/19 12/03/19 08:00 08:00 Urine Color [place] Urine Appearance Turbid Urine pH 8.5 H D Ur Specific [place] 1.013 Urine Protein 2+ H Urine Glucose (UA) Negative Urine Ketones Negative Urine Blood 3+ H Urine Nitrite Negative Urine Bilirubin Negative Urine Urobilinogen 0.2 Ur Leukocyte Esterase 3+ H Urine WBC (Auto) 5764 Urine RBC (Auto) 4179 Urine Casts (Auto) 4 U Epithel Cells (Auto) 8 Urine Bacteria (Auto) 310 Urine HCG, Qual Negative Discharge - Discharge Information Problems reviewed: Yes Clinical Impression/Diagnosis: UTI (urinary tract infection) Qualifiers: Urinary tract infection type: acute cystitis Hematuria presence: with hematuria Qualified Code(s): N30.01 - Acute cystitis with hematuria Condition: Stable Disposition: HOME - Admission No - Additional Discharge Information Prescriptions: Nitrofurantoin Monohyd/M-Cryst [Macrobid -] 100 mg PO BID #14 capsule - Follow up/Referral - Patient Discharge Instructions Patient Printed Discharge Instructions: DI for Urinary Tract Infection (UTI) Additional Instructions: You were seen in the ER for burning with urination. Your urine test shows signs of a Urinary Tract Infection (UTI). Take the prescribed antibiotic and be sure to finish the full course. Follow up with your primary care physician as soon as possible, in the next 5 days. Return to the ER if you develop high fevers, weakness, confusion, or intractable nausea and vomiting. - Post Discharge Activity
--- NOTE | 2019-12-03 09:08 | PDOC ---
Attending Attestation - Resident Resident Name: Troy Olmedo - ED Attending Attestation I have performed the following: I have examined & evaluated the patient, The case was reviewed & discussed with the resident, I agree w/resident's findings & plan, Exceptions are as noted - HPI HPI: 12/03/19 09:06 29 yo F denies PMH p/w pain on urination x2 days and hematuria since today. Denies vaginal itching, pain, or discharge. Reports very mild suprapubic pain. Has 2 prior UTIs this year. Denies back pain or fever. - Physicial Exam PE: 12/03/19 09:07 General: well appearing HEENT: MMM Abdomen: soft, nt, no rebound, no guarding, no masses - Medical Decision Making 12/03/19 09:07 29 yo F with likely UTI, no systemic signs of infection or signs/symptoms concerning for pyelo. HCG negative here so unlikely . Plan: -check urine -if urine concerning for UTI will d/c with rx for abx and recommend PMD f/u, return precautions given This clinical encounter is taking place during a federal and state health care emergency attributable to the novel [place] Virus pandemic. The [employer] of the Department of Health and Human Services has declared, pursuant to the Public Health Service Act 319F-3 (42 U.S.C. 247d-6d), that a covered persons activities related to medical countermeasures against COVID-19 will be immune from liability under Federal and State law. Discharge - Discharge Information Problems reviewed: Yes Clinical Impression/Diagnosis: UTI (urinary tract infection) Qualifiers: Urinary tract infection type: acute cystitis Hematuria presence: with hematuria Qualified Code(s): N30.01 - Acute cystitis with hematuria Condition: Stable Disposition: HOME - Additional Discharge Information Prescriptions: Nitrofurantoin Monohyd/M-Cryst [Macrobid -] 100 mg PO BID #14 capsule - Follow up/Referral - Patient Discharge Instructions Patient Printed Discharge Instructions: DI for Urinary Tract Infection (UTI) Additional Instructions: You were seen in the ER for burning with urination. Your urine test shows signs of a Urinary Tract Infection (UTI). Take the prescribed antibiotic and be sure to finish the full course. Follow up with your primary care physician as soon as possible, in the next 5 days. Return to the ER if you develop high fevers, weakness, confusion, or intractable nausea and vomiting. - Post Discharge Activity
== END 2019-12-03 09:29 | disposition home or self-care (01) ==
LOC: JER 07:07
DX: N30.01 Acute cystitis with hematuria (principal)
CPT/HCPCS: 81003; 84703; 87086; 99283-25

== ENCOUNTER 2020-09-03 21:19 | Emergency (ER) | payer OTHER ==
[2020-09-03 21:43] VITALS: BP 145/91; PULSE 75; TEMP 98.4; BMI 34.2
[2020-09-03] MEDS ORDERED: ACETAMINOPHEN 500 MG TABLET (FP) PO ONE (23:26)
[2020-09-03] MEDS ORDERED: ACETAMINOPHEN 500 MG TABLET (FP) ONE (23:36)
== END 2020-09-03 23:42 | disposition home or self-care (01) ==
LOC: JER 21:19
DX: M62.838 Other muscle spasm (principal)
CPT/HCPCS: 99283-25

== ENCOUNTER → 2021-02-10 | Emergency (ER) | payer OTHER ==
[~2021-02-10] MED LIST: PIPERACILLIN/TAZOB 4.5 GM 4.5 GM in DEXTROSE 5%-WATER 100 ML IVPB ONE; PIPERACILLIN/TAZOB 4.5 GM 4.5 GM/100 ML BAG IVPB ONE
[2021-02-10 21:53] VITALS: BMI 34.2
[2021-02-10 23:11] LABS: BASO % 0.5 % (0-2.0); HEMATOCRIT 37.9 % (32.4-45.2); HEMOGLOBIN 12.8 GM/dL (10.7-15.3); LYMPH % 8.9 % (8-40); MCH 31.6 pg (25.7-33.7); MCHC 33.9 g/dl (32.0-36.0); MEAN CELL VOLUME 93.4 fl (80-96); MEAN PLT VOLUME 8.4 fl (7.5-11.1); MONO % 4.3 % (3.8-10.2); NEUT % 86.3 % (42.8-82.8); PLATELET COUNT 279 10^3/uL (134-434); RBC 4.05 M/mm3 (3.60-5.2); RDW 13.7 % (11.6-15.6); WHITE BLOOD COUNT 11.3 K/mm3 (4.0-10.0)
[2021-02-10 23:31] LABS: CALCIUM 8.8 mg/dL (8.5-10.1)
[2021-02-10 23:32] LABS: ALBUMIN 2.9 g/dl (3.4-5.0); BLOOD UREA NITROGEN 8.4 mg/dL (7-18); MAGNESIUM 2.2 mg/dL (1.8-2.4)
[2021-02-10 23:35] LABS: CREATININE 0.6 mg/dL (0.55-1.3)
[2021-02-10 23:36] LABS: BILIRUBIN,TOTAL 0.8 mg/dL (0.2-1); TOT PROT 6.8 g/dl (6.4-8.2)
[2021-02-11 11:30] VITALS: BP 132/78; PULSE 74; TEMP 97.6
== END | disposition short-term general hospital (02) ==
LOC: JER 21:48
PROC: 3E0333Z Introduction of Anti-inflammatory into Peripheral Vein, Percutaneous Approach (ICD-10-PCS; principal; 2021-02-10)
DX: R55 Syncope and collapse (principal)
CPT/HCPCS: 36415; 76705-TC; 80053; 83690; 83735; 85025; 93005; 93010; 99285-25; C9803; U0003; U0005

== ENCOUNTER 2021-04-05 12:55 | Inpatient (IN) | payer OTHER ==
[2021-04-05 13:51] LABS: BASO % 0.6 % (0-2.0); EOS % 0.2 % (0-4.5); HEMATOCRIT 38.9 % (32.4-45.2); HEMOGLOBIN 12.5 GM/dL (10.7-15.3); LYMPH % 16.2 % (8-40); MCH 30.2 pg (25.7-33.7); MCHC 32.2 g/dl (32.0-36.0); MEAN CELL VOLUME 93.8 fl (80-96); MEAN PLT VOLUME 9.3 fl (7.5-11.1); MONO % 6.8 % (3.8-10.2); NEUT % 76.2 % (42.8-82.8); PLATELET COUNT 283 10^3/uL (134-434); RBC 4.15 M/mm3 (3.60-5.2); RDW 14.8 % (11.6-15.6); WHITE BLOOD COUNT 6.4 K/mm3 (4.0-10.0)
[2021-04-05 13:58] LABS: INR 0.87 (0.83-1.09)
[2021-04-05 14:01] LABS: ACTIVATED PTT 27.4 SECONDS (25.2-36.5)
[2021-04-05 14:18] LABS: CALCIUM 9.4 mg/dL (8.5-10.1)
[2021-04-05 14:19] LABS: BLOOD UREA NITROGEN 14.9 mg/dL (7-18)
[2021-04-05 14:22] LABS: CREATININE 0.7 mg/dL (0.55-1.3)
[2021-04-05 14:28] VITALS: BMI 36.3
[2021-04-05] MEDS ORDERED: SODIUM CHLORIDE 100 ML IVPB ONE (14:37)
[2021-04-05] MEDS ORDERED: AMPICILLIN SODIUM 2 GM VIAL ONE ×2 (14:37→15:02)
[2021-04-05 14:39] LABS: ALBUMIN 2.8 g/dl (3.4-5.0)
[2021-04-05 14:44] LABS: BILIRUBIN,TOTAL 0.2 mg/dL (0.2-1); TOT PROT 6.7 g/dl (6.4-8.2)
[2021-04-05] MEDS ORDERED: OXYTOCIN 30 UNITS in 0.9% NS 30 UNIT/500 ML INFUS.BAG IVPB SCH (14:45)
[2021-04-05] MEDS ORDERED: DEXTROSE 5%-LACTATED RINGERS 1,000 ML IV SCH (14:45)
[2021-04-05] MEDS ORDERED: OXYTOCIN 30 UNITS in 0.9% NS 30 UNIT/500 ML INFUS.BAG IVPB ONE (15:02)
[2021-04-05] MEDS ORDERED: BUTORPHANOL TARTRATE 2 MG/ML VIAL IVPUSH PRN (15:11)
[2021-04-05] MEDS ORDERED: PROMETHAZINE HCL 25 MG/1 ML VIAL IVPUSH ONE (15:11)
[2021-04-05] MEDS ORDERED: AMPICILLIN - 2 GM in SODIUM CHLORIDE 100 ML IVPB ONE (15:13)
[2021-04-05] MEDS: AMPICILLIN - 1 GM in SODIUM CHLORIDE 100 ML IVPB SCH ×2 (17:27→22:10)
[2021-04-05] MEDS ORDERED: AMPICILLIN - 1 GM in SODIUM CHLORIDE 100 ML IVPB SCH (19:15)
[2021-04-05] MEDS ORDERED: BUTORPHANOL TARTRATE 2 MG/ML VIAL ONE (21:26)
[2021-04-05] MEDS ORDERED: PROMETHAZINE HCL 25 MG/1 ML VIAL ONE (21:26)
[2021-04-05] MEDS ORDERED: AMPICILLIN SODIUM 1 GM VIAL ONE (22:06)
[2021-04-06] MEDS ORDERED: OXYTOCIN 20 UNITS in 0.9% NS 20 UNIT/1,000 ML INFUS.BAG IV ONE (00:03)
[2021-04-06] MEDS ORDERED: BENZOCAINE 28 GM HEMORRHOIDAL OINTMENT TP PRN (00:44)
[2021-04-06] MEDS ORDERED: METHYLERGONOVINE MALEATE 0.2 MG/1 ML AMP IM PRN (00:44)
[2021-04-06] MEDS ORDERED: WITCH HAZEL 50% (TUCKS) 40 PAD/JAR PAD TP PRN (00:44)
[2021-04-06] MEDS ORDERED: oxyCODONE HCL 5 MG TABLET PO PRN (00:44)
[2021-04-06] MEDS ORDERED: BISACODYL 10 MG SUPP.RECT RC PRN (00:44)
[2021-04-06] MEDS ORDERED: BENZOCAINE 20% 57 GM BOTTLE TP PRN (00:44)
[2021-04-06] MEDS ORDERED: OXYTOCIN 20 UNITS in 0.9% NS 20 UNIT/1,000 ML INFUS.BAG IV SCH (00:45)
[2021-04-06] MEDS: IBUPROFEN 600 MG TABLET (FP) PO PRN ×2 (03:00→08:57)
[2021-04-06] MEDS: ACETAMINOPHEN 325 MG TABLET (FP) PO PRN (15:09)
[2021-04-07 10:01] LABS: HEMATOCRIT 31.2 % (32.4-45.2); HEMOGLOBIN 10.3 GM/dL (10.7-15.3); MCH 30.9 pg (25.7-33.7); MEAN CELL VOLUME 93.6 fl (80-96); MEAN PLT VOLUME 9.5 fl (7.5-11.1); NEUT % 71.1 % (42.8-82.8); PLATELET COUNT 236 10^3/uL (134-434); RBC 3.34 M/mm3 (3.60-5.2); RDW 15.1 % (11.6-15.6); WHITE BLOOD COUNT 7.7 K/mm3 (4.0-10.0)
[2021-04-07 10:02] LABS: BASO % 0.6 % (0-2.0); EOS % 0.9 % (0-4.5); LYMPH % 20.3 % (8-40); MONO % 7.1 % (3.8-10.2)
[2021-04-07 10:19] LABS: ALBUMIN 2.4 g/dl (3.4-5.0); BLOOD UREA NITROGEN 6.1 mg/dL (7-18); CALCIUM 8.6 mg/dL (8.5-10.1)
[2021-04-07 10:22] LABS: CREATININE 0.6 mg/dL (0.55-1.3); TOT PROT 5.4 g/dl (6.4-8.2)
[2021-04-07 10:23] LABS: BILIRUBIN,TOTAL 0.4 mg/dL (0.2-1)
[2021-04-07] MEDS: ACETAMINOPHEN 325 MG TABLET (FP) PO PRN (13:02)
[2021-04-07] MEDS ORDERED: SENNOSIDES/DOCUSATE COMBO (SENNA PLUS) TABLET (UD) PO PRN (22:00)
[2021-04-08 10:50] VITALS: BP 137/90; PULSE 65; TEMP 97.7
== END 2021-04-08 14:20 | disposition home or self-care (01) | DRG 560 ==
LOC: JLDR 12:55 → J3W 04-06 02:57
PROVIDERS: ADMIT Obstetrics & Gynecology; ATTEND Obstetrics & Gynecology
PROC: 10907ZC Drainage of Amniotic Fluid, Therapeutic from Products of Conception, Via Natural or Artificial Opening (ICD-10-PCS; principal; 2021-04-05)
PROC: 3E033VJ Introduction of Other Hormone into Peripheral Vein, Percutaneous Approach (ICD-10-PCS; 2021-04-05)
PROC: 10E0XZZ Delivery of Products of Conception, External Approach (ICD-10-PCS; 2021-04-06)
DX: O26.613 Liver and biliary tract disorders in pregnancy, third trimester (principal); K83.1 Obstruction of bile duct; O99.824 Streptococcus B carrier state complicating childbirth; O90.89 Other complications of the puerperium, not elsewhere classified; R10.13 Epigastric pain; Z3A.39 39 weeks gestation of pregnancy; Z37.0 Single live birth
CPT/HCPCS: 36415; 59409; 76705-TC; 80048; 80053; 85025; 85610; 85730; 86780; 86850; 86900; 86901; C9803; U0003; U0005

== ENCOUNTER 2021-06-01 05:35 | Day surgery (SDC) | payer OTHER ==
[2021-05-28 13:34] VITALS: BMI 33.7
[2021-06-01] MEDS ORDERED: BUPIVACAINE HCL/PF 0.5% (5MG/ML) 10 ML VIAL ONE (07:18)
[2021-06-01] MEDS ORDERED: PROPOFOL 20 ML ONE ×4 (07:43→10:11)
[2021-06-01] MEDS ORDERED: SUCCINYLCHOLINE CHLORIDE 200 MG/10 ML SYRINGE ONE (07:43)
[2021-06-01] MEDS ORDERED: ROCURONIUM BROMIDE 50 MG/5 ML SYRINGE ONE ×2 (07:43→09:25)
[2021-06-01] MEDS ORDERED: MIDAZOLAM HCL 2 MG/2 ML SINGLE DOSE VIAL ONE (07:44)
[2021-06-01] MEDS ORDERED: DESFLURANE GAS 240 ML BOTTLE IH ONE (08:17)
[2021-06-01] MEDS ORDERED: ceFAZolin SODIUM 1 GM VIAL IVPB ONE (08:25)
[2021-06-01] MEDS ORDERED: BUPIVACAINE HCL/PF 0.5% (5MG/ML) 10 ML VIAL NR ONE (08:49)
[2021-06-01] MEDS ORDERED: NEOSTIGMINE METHYLSULFATE 0.5 MG/ML - 10 ML MDV ONE (10:07)
[2021-06-01] MEDS ORDERED: oxyCODONE HCL 5 MG TABLET PO PRN (10:35)
[2021-06-01 16:41] VITALS: BP 140/84; PULSE 75; TEMP 98.2
== END 2021-06-01 15:15 | disposition home or self-care (01) ==
LOC: JASU-SURG 05:35
PROVIDERS: ATTEND Surgery
PROC: 0FT44ZZ Resection of Gallbladder, Percutaneous Endoscopic Approach (ICD-10-PCS; principal; 2021-06-01 08:00)
DX: K80.10 Calculus of gallbladder with chronic cholecystitis without obstruction (principal)
CPT/HCPCS: 81025; 88304-TC; 94760

== ENCOUNTER 2022-06-29 17:11 | Emergency (ER) | payer OTHER ==
[2022-06-29 17:27] VITALS: BP 148/80; PULSE 69; RESP 20; TEMP 98; BMI 37.1
[2022-06-29] MEDS ORDERED: KETOROLAC TROMETHAMINE 30 MG/1 ML VIAL IM ONE (18:17)
[2022-06-29] MEDS ORDERED: METHOCARBAMOL 500 MG TABLET PO ONE (18:17)
[2022-06-29] MEDS ORDERED: LIDOCAINE 5% TOPICAL PATCH TP ONE (18:17)
[2022-06-29] MEDS ORDERED: METHOCARBAMOL 500 MG TABLET ONE (18:28)
[2022-06-29] MEDS ORDERED: KETOROLAC TROMETHAMINE 30 MG/1 ML VIAL ONE ×2 (18:28→18:30)
[2022-06-29] MEDS ORDERED: LIDOCAINE 5% TOPICAL PATCH ONE (18:28)
[2022-06-29] MEDS ORDERED: LIDOCAINE PATCH REMOVAL MC SCH (22:00)
== END 2022-06-29 19:40 | disposition home or self-care (01) ==
LOC: JERFT 17:11
PROC: 3E0233Z Introduction of Anti-inflammatory into Muscle, Percutaneous Approach (ICD-10-PCS; principal; 2022-06-29)
DX: M62.838 Other muscle spasm (principal); M54.2 Cervicalgia
CPT/HCPCS: 99284-25

== ENCOUNTER 2022-08-25 18:27 | Emergency (ER) | payer OTHER ==
[2022-08-25 18:39] VITALS: BP 168/82; PULSE 77; RESP 18; TEMP 98.8; BMI 35.5
[2022-08-25] MEDS ORDERED: KETOROLAC TROMETHAMINE 30 MG/1 ML VIAL IM ONE (20:09)
[2022-08-25] MEDS ORDERED: LIDOCAINE 5% TOPICAL PATCH TP ONE (20:10)
[2022-08-25] MEDS ORDERED: ACETAMINOPHEN 500 MG TABLET (FP) PO ONE (20:10)
[2022-08-25 20:14] LABS: EPI CELLS >36 /uL (0-25.1); HYALINE CASTS 9 /uL (0-3.1); URINE APPEARANCE CLOUDY; URINE BACTERIA 72 /uL (0-1359); URINE BILIRUBIN NEGATIVE (NEGATIVE); URINE COLOR ORANGE; URINE GLUCOSE (UA) NEGATIVE (NEGATIVE); URINE KETONE NEGATIVE (NEGATIVE); URINE LEUK ESTERASE 2+ (NEGATIVE); URINE NITRITE NEGATIVE (NEGATIVE); URINE PROTEIN 1+ (NEGATIVE); URINE RBC 13621 /uL (0-23.9); URINE WBC 106 /uL (0-25.8)
[2022-08-25] MEDS ORDERED: LIDOCAINE 5% TOPICAL PATCH ONE (20:37)
[2022-08-25] MEDS ORDERED: KETOROLAC TROMETHAMINE 30 MG/1 ML VIAL ONE (20:37)
[2022-08-25] MEDS ORDERED: ACETAMINOPHEN 500 MG TABLET (FP) ONE (20:37)
[2022-08-26] MEDS ORDERED: LIDOCAINE PATCH REMOVAL MC SCH (08:00)
== END 2022-08-25 20:55 | disposition home or self-care (01) ==
LOC: JER 18:27 → JERFT 18:27
PROC: 3E0233Z Introduction of Anti-inflammatory into Muscle, Percutaneous Approach (ICD-10-PCS; principal; 2022-08-25)
DX: M54.6 Pain in thoracic spine (principal)
CPT/HCPCS: 81003; 84703; 87077; 87086; 99284-25

== ENCOUNTER 2023-10-15 05:24 | Emergency (ER) | payer OTHER ==
[2023-10-15 05:34] VITALS: BP 156/97; PULSE 62; RESP 16; TEMP 98.4; BMI 34.8
[2023-10-15] MEDS ORDERED: ACETAMINOPHEN INJECTION 100 ML IVPB ONE (05:54)
[2023-10-15] MEDS: ACETAMINOPHEN 1000 MG/100 ML BAG IVPB ONE (05:57)
[2023-10-15] MEDS ORDERED: KETOROLAC TROMETHAMINE 15 MG/ML VIAL ONE (06:17)
[2023-10-15] MEDS ORDERED: ONDANSETRON 4 MG/2 ML VIAL ONE (06:18)
[2023-10-15] MEDS: ONDANSETRON 4 MG/2 ML VIAL IVPUSH ONE (06:22)
[2023-10-15] MEDS: KETOROLAC TROMETHAMINE 30 MG/1 ML VIAL IVPUSH ONE (06:22)
[2023-10-15] MEDS: SODIUM CHLORIDE 0.9% 500 ML INFUS.BAG IV ONE (06:23)
[2023-10-15 06:24] LABS: BASO % 0.6 % (0-2.0); EOS % 0.9 % (0-4.5); HEMATOCRIT 40.9 % (32.4-45.2); HEMOGLOBIN 13.8 GM/dL (10.7-15.3); LYMPH % 33.7 % (8-40); MCH 30.6 pg (25.7-33.7); MCHC 33.6 g/dl (32.0-36.0); MEAN CELL VOLUME 90.9 fl (80-96); MEAN PLT VOLUME 8.6 fl (7.5-11.1); MONO % 7.8 % (3.8-10.2); PLATELET COUNT 368 10^3/uL (134-434); RDW 14.6 % (11.6-15.6); WHITE BLOOD COUNT 8.8 K/mm3 (4.0-10.0)
[2023-10-15 06:28] LABS: PH,URINE 6.5 (5.0-8.0); URINE APPEARANCE CLEAR; URINE BILIRUBIN NEGATIVE (NEGATIVE); URINE COLOR YELLOW; URINE GLUCOSE (UA) NEGATIVE (NEGATIVE); URINE KETONE NEGATIVE (NEGATIVE); URINE LEUK ESTERASE NEGATIVE (NEGATIVE); URINE NITRITE NEGATIVE (NEGATIVE); URINE PROTEIN NEGATIVE (NEGATIVE); URINE UROBILINOGEN 0.2 mg/dL (0.2-1.0)
[2023-10-15 06:58] LABS: POTASSIUM 3.5 mmol/L (3.5-5.1)
[2023-10-15 07:01] LABS: BLOOD UREA NITROGEN 10.5 mg/dL (7-18)
[2023-10-15 07:04] LABS: CREATININE 0.8 mg/dL (0.55-1.3)
[2023-10-15 07:05] LABS: BILIRUBIN,TOTAL 0.6 mg/dL (0.2-1)
[2023-10-15 07:06] LABS: TOT PROT 7.7 g/dl (6.4-8.2)
[2023-10-15 09:58] LABS: EPI CELLS 10.8 /uL (0-25.1); URINE BACTERIA 7.5 /uL (0-1359); URINE RBC 8.4 /uL (0-23.9)
== END 2023-10-15 09:37 | disposition home or self-care (01) ==
LOC: JER 05:24
PROC: 3E033NZ Introduction of Analgesics, Hypnotics, Sedatives into Peripheral Vein, Percutaneous Approach (ICD-10-PCS; principal; 2023-10-15)
PROC: 3E0333Z Introduction of Anti-inflammatory into Peripheral Vein, Percutaneous Approach (ICD-10-PCS; 2023-10-15)
PROC: 3E033GC Introduction of Other Therapeutic Substance into Peripheral Vein, Percutaneous Approach (ICD-10-PCS; 2023-10-15)
DX: N13.2 Hydronephrosis with renal and ureteral calculous obstruction (principal); R30.0 Dysuria
CPT/HCPCS: 36415; 74176-TC; 80053; 81003; 84703; 85025; 87086; 99284-25; J0131